=== PATIENT | female | born 1940 | race Caucasian/White ===

== ENCOUNTER 2017-02-21 14:32 | Emergency (ER) | payer MEDICARE ==
[2017-02-21] MEDS ORDERED: diltiaZEM INJ 5 MG/ML VIAL IVP STA ×2 (15:02→15:43)
[2017-02-21] MEDS ORDERED: ENOXAPARIN 60 MG/0.6 ML SYRINGE SUBQ STA (15:02)
--- NOTE | 2017-02-21 15:06 | ED Physician Documentation ---
History of Present Illness - Stated complaint Stated Complaint: CHEST TIGHTNESS,WEAK, SOA, HEADACHE - Chief complaint Chief Complaint: General - History obtained from History obtained from: Patient, Family - History of Present Illness Timing: Other (76-year-old woman with history of atrial flutter. She is noncompliant with some sort of cardiology medication for same. She said she stopped taking it a couple of weeks ago. 9 days ago she became persistently nauseous and has vomited a few times and feels weak and dizzy there is no associated chest pain. She is short of breath. No pedal edema. She denies abdominal pain or diarrhea.) Review of Systems Ten Systems: 10 systems reviewed and negative Constitutional: denies: Fever, Chills Nose: denies: Rhinorrhea / runny nose, Congestion Cardiac: denies: Chest pain / pressure, Palpitations, Pedal edema, Calf pain Respiratory: reports: Dyspnea. denies: Cough, Hemoptysis, Wheezing GI: reports: Nausea, Vomiting. 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, Other HEENT: Cataracts, Tonsil/Adenoidectomy - Present Medications Home Medications: Ambulatory Orders Medication Instructions Recorded Confirmed HYDROcod/ACETAM 5/325 [[place] 5/325] 1 each PO BID PRN 02/21/17 02/21/17 Metoclopramide [Reglan] 10 mg PO Q6H PRN #20 tablet 02/21/17 - Allergies Allergies/Adverse Reactions: Allergies Allergy/AdvReac Type Severity Reaction Status Date / Time cephalexin monohydrate * Allergy Hives Verified 02/21/17 14:43 [From Keflex] tobramycin Allergy Nausea Verified 02/21/17 14:43 venom-honey bee Allergy Unknown Verified 02/21/17 14:43 [bee venom (honey bee)] OXYCODONE Allergy Unknown Uncoded 02/21/17 14:43 - Social History Does the pt smoke?: No Smoking Status: Never smoker Does the pt drink ETOH?: Yes Does the pt have substance abuse?: No - Family History Family history: reports: Non contributory - Immunizations Immunizations are current?: Yes PD ED PE NORMAL - Vitals Vital signs reviewed: Yes - General General: Alert and oriented X 3, No acute distress, Other (Thin) - HEENT HEENT: PERRL, EOMI - Neck Neck: Supple, no meningeal sign, No bony TTP, No JVD - Cardiac Cardiac: Other (irregularly, irregular, no murmur.) - Respiratory Respiratory: Other (rales v mild at both bases) - Abdomen Abdomen: Soft, Non tender - Extremities Extremities: Normal ROM s pain, No edema, No calf tenderness / cord - Neuro Neuro: Alert and oriented X 3, Normal speech - Psych Psych: Normal mood, Normal affect Results - Vitals Vitals: Vital Signs - 24 hr 02/21/17 02/21/17 02/21/17 14:35 14:55 15:34 Temperature 37.2 C Heart Rate 115 H 114 H 103 H Respiratory 15 18 16 Rate Blood Pressure 159/109 H 168/93 H 126/75 O2 Saturation 99 99 97 02/21/17 02/21/17 16:38 17:13 Temperature Heart Rate 103 H 92 Respiratory 18 18 Rate Blood Pressure 148/84 H 146/98 H O2 Saturation 97 98 Oxygen O2 Source [] Nasal cannula O2 Source Room air - EKG (time done) 1445 Rate: Rate (enter#) (111) Rhythm: Atrial fibrillation [place]: LAD QRS: Normal Ischemia: ST elevation c/w ischemia Computer interpretation: Agree with computer 1718 Rate: Rate (enter#) (92) Rhythm: NSR [place]: Normal Intervals: Normal [place], Prolonged QT (borderline) QRS: Normal Computer interpretation: Agree with computer - Labs Labs: Laboratory Tests 02/21/17 02/21/17 02/21/17 14:44 14:44 14:44 WBC 8.8 RBC 4.30 Hgb 13.5 Hct 41.2 MCV 95.8 MCH 31.5 H MCHC 32.8 RDW 14.5 Plt Count 176 MPV 8.0 Neut # 6.6 Lymph # 1.4 L Rabun # 0.7 Eos # 0.0 Baso # 0.1 Absolute Nucleated RBC 0.01 Nucleated RBCs 0.1 PT 11.2 INR 1.0 Sodium 139 Potassium 3.1 L Chloride 96 L Carbon Dioxide 16 L Anion Gap 27.0 H BUN 7 Creatinine 0.5 Estimated GFR (MDRD) 121 Glucose 103 H Calcium 9.7 Total Bilirubin 2.4 H AST 113 H ALT 46 Alkaline Phosphatase 142 H Troponin I B-Natriuretic Peptide Total Protein 8.1 Albumin 4.4 Globulin 3.7 Albumin/Globulin Ratio 1.2 Lipase 125 H TSH 02/21/17 02/21/17 02/21/17 14:44 14:44 14:44 WBC RBC Hgb Hct MCV MCH MCHC RDW Plt Count MPV Neut # Lymph # [place] # Eos # Baso # Absolute Nucleated RBC Nucleated RBCs PT INR Sodium Potassium Chloride Carbon Dioxide Anion Gap BUN Creatinine Estimated GFR (MDRD) Glucose Calcium Total Bilirubin AST ALT Alkaline Phosphatase Troponin I < 0.04 B-Natriuretic Peptide 51 Total Protein Albumin Globulin Albumin/Globulin Ratio Lipase TSH 6.40 H - Rads (name of study) RUQ sono Radiology: Prelim report reviewed (Hepatic steatosis, gallbladder polyp not needing followup, borderline gallbladder wall thickness probably related to underlying liver disease.) PD MEDICAL DECISION MAKING - ED course ED course: 76-year-old woman with history of atrial flutter presents with nonspecific nausea and lightheadedness and dyspnea in the setting of now being in rapid atrial fibrillation and recently been noncompliant with whatever cardiac medicine she is supposed to take, they don't know the name of it. She was administered of diltiazem IV and Lovenox subcutaneous. She does have rapid atrial flutter on her EKG but no real ischemic changes, no overt evidence of fluid overload on exam or chest x-ray. Lab work notable for acidosis with hypokalemia, she was given IV fluids and potassium IV. Also note that her liver enzymes are elevated. After discussing this with the patient and family the came out and talked to me and told me that she is a heavy drinker, right upper quadrant ultrasound was ordered. At that juncture her heart rate was about 105 and a second dose of diltiazem was ordered as well. Really no further improvement with the diltiazem but with half a dose of IV metoprolol she converted to sinus rhythm. She felt much better at that juncture. She requests discharge. Advised decreasing alcohol and following up with her supervisor [employer]. She has some sort of heart medicine at home to prevent this, presume a beta nahed, they will restart that tonight. Consideration given to ongoing and home-going anticoagulation, but given that she has converted, and concerns about alcoholism, this is probably a discussion better had with her primary care physician and/or supervisor [employer]. Departure - Departure Disposition: 01 Home, Self Care Clinical Impression: Hypokalemia, Atrial fib/flutter, transient, Dehydration Condition: Good Record reviewed to determine appropriate education?: Yes Instructions: Atrial Fibrillation Dc, Hypokalemia Dc Prescriptions: Metoclopramide [Reglan] 10 mg PO Q6H PRN #20 tablet PRN Reason: Nausea / Vomiting Comments: Take your cardiac medicine as you are supposed you. Return if worse. Followup with your physician, next available appointment, also your supervisor [employer]. Discharge Date/Time: 02/21/17 17:43
[2017-02-21] MEDS ORDERED: ENOXAPARIN 60 MG/0.6 ML SYRINGE SUBQ ONE (15:07)
[2017-02-21] MEDS ORDERED: diltiaZEM INJ 5 MG/ML VIAL ONE (15:07)
[2017-02-21 15:12] LABS: BASOPHILS # (AUTO) 0.1 10^3/uL (0.0-0.1); BASOPHILS % (AUTO) 0.7 %; EOSINOPHILS % (AUTO) 0.4 %; HCT - HEMATOCRIT 41.2 % (37.0-47.0); HGB - HEMOGLOBIN 13.5 g/dL (12.0-16.0); LYMPHOCYTES # (AUTO) 1.4 10^3/uL (1.5-3.5); MEAN CORPUSCULAR HEMOGLOBIN 31.5 pg (27.0-31.0); MEAN CORPUSCULAR HGB CONC 32.8 g/dL (32.0-36.0); MEAN CORPUSCULAR VOLUME 95.8 fL (81.0-99.0); MONOCYTES # (AUTO) 0.7 10^3/uL (0.0-1.0); MONOCYTES % (AUTO) 7.6 %; NEUTROPHILS # (AUTO) 6.6 10^3/uL (1.5-6.6); NEUTROPHILS % (AUTO) 75.3 %; NUCLEATED RED BLOOD CELLS AUTO 0.1 /100WBC; RED CELL DISTRIBUTION WIDTH 14.5 % (12.0-15.0); UNCORRECTED WHITE BLOOD COUNT 8.8 x10^3/uL; WHITE BLOOD COUNT 8.8 x10^3/uL (4.8-10.8)
[2017-02-21 15:18] LABS: PT - PROTHROMBIN TIME 11.2 secs (9.9-12.6)
[2017-02-21] MEDS ORDERED: PROMETHAZINE INJ 6.25 MG in SODIUM CHLORIDE 0.9% 50 ML IV STA (15:22)
[2017-02-21] MEDS ORDERED: PROMETHAZINE 25 MG/1 ML VIAL ONE ×2 (15:22→15:29)
[2017-02-21 15:27] LABS: ALBUMIN/GLOBULIN RATIO 1.2 (1.0-2.2); BILIRUBIN,TOTAL 2.4 mg/dL (0.2-1.0); CALCIUM 9.7 mg/dL (8.5-10.3); CREATININE 0.5 mg/dL (0.4-1.0); POTASSIUM 3.1 mmol/L (3.5-5.0); TOTAL PROTEIN 8.1 g/dL (6.7-8.2)
--- NOTE | 2017-02-21 15:38 | XRAY Preliminary Report ---
Exam: XR Chest 1 View IMPRESSION: No acute disease. [facility] SITE ID: [id number]
--- NOTE | 2017-02-21 15:41 | XRAY Report ---
EXAM: CHEST RADIOGRAPHY EXAM DATE: 02/21/2017 03:19 PM. CLINICAL HISTORY: Afib with dyspnea,?chf. COMPARISON: None. TECHNIQUE: 1 view. FINDINGS: Lungs/Pleura: Clear. No effusion or pneumothorax. Skin fold artifacts. Added density over the left ba se is due to overlying soft tissue. Mediastinum: Within exam limitations, cardiomediastinal contour is normal. Upper lobe vessels not dis tended. Other: Osteopenia, degenerative changes. IMPRESSION: No acute disease. [facility] Referring Provider Line: [phone] SITE ID: [id number]
[2017-02-21] MEDS ORDERED: POTASSIUM CHLOR 10 MEQ/100 ML 100 ML IV ONE ×2 (15:42→15:44)
[2017-02-21] MEDS ORDERED: SODIUM CHLORIDE 0.9% 1,000 ML IV ONE (15:43)
[2017-02-21] MEDS ORDERED: METOPROLOL 5 MG/5 ML VIAL IVP STA (16:54)
[2017-02-21] MEDS ORDERED: METOPROLOL 5 MG/5 ML VIAL IVP ONE (17:02)
[2017-02-21 17:13] VITALS: BP 146/98
--- NOTE | 2017-02-21 17:17 | Ultrasound Preliminary Report ---
Exam: US Abdomen Limited IMPRESSION: 1. Steatotic liver. 2. 3 mm gallbladder polyp versus adherent stone. No imaging follow-up needed for gallbladder polyps l ess than 7 mm per ACR white paper. 3. Borderline gallbladder wall thickness, nonspecific, may relate to underlying liver disease. [facility] SITE ID: [id number]
--- NOTE | 2017-02-21 17:20 | Ultrasound Report ---
EXAM: ABDOMEN ULTRASOUND LIMITED, RUQ EXAM DATE: 02/21/2017 04:42 PM. CLINICAL HISTORY: Nausea. Elevated liver function tests. COMPARISON: None. TECHNIQUE: Real-time scanning was performed with static images obtained. FINDINGS: Liver: Dense, echogenic, mildly heterogeneous parenchyma, compatible with steatosis, with geographic areas of fatty sparing adjacent to the gallbladder. Main portal vein flow: Hepatopetal. Gallbladder: Immobile non-shadowing 3 mm echogenic focus in the neck, representing a polyp or adheren t stone. Borderline gallbladder wall thickness, 3 mm. No sonographic Liz's sign. Biliary System: CBD measures 5 mm. No intrahepatic or extrahepatic ductal dilatation. Right Kidney: 11.5 cm in length. Normal parenchymal echotexture. No visualized shadowing stones or hy dronephrosis. Pancreas: Mostly obscured by overlying bowel gas. Prominent pancreatic duct in the neck measuring 3 m m. IMPRESSION: 1. Steatotic liver. 2. 3 mm gallbladder polyp versus adherent stone. No imaging follow-up needed for gallbladder polyps l ess than 7 mm per ACR white paper. 3. Borderline gallbladder wall thickness, nonspecific, may relate to underlying liver disease. [facility] Referring Provider Line: [phone] SITE ID: [id number]
[2017-02-21] MEDS ORDERED: POTASSIUM CHLORIDE 20 MEQ TABLET PO STA (17:26)
[2017-02-21] MEDS ORDERED: POTASSIUM CHLORIDE 20 MEQ TABLET PO ONE (17:29)
== END 2017-02-21 17:43 | disposition home or self-care (01) ==
LOC: ED 14:32
DX: I48.91 Unspecified atrial fibrillation (principal); I48.92 Unspecified atrial flutter; T44.7X6A Underdosing of beta-adrenoreceptor antagonists, initial encounter; Z91.128 Patient's intentional underdosing of medication regimen for other reason; E87.2 Acidosis; E86.0 Dehydration; E87.6 Hypokalemia; K76.0 Fatty (change of) liver, not elsewhere classified; J45.909 Unspecified asthma, uncomplicated; I10 Essential (primary) hypertension; M06.9 Rheumatoid arthritis, unspecified
CPT/HCPCS: 36415; 71010; 76705; 80053; 83690; 83880; 84443; 84484; 85025; 85610; 93005; 93010; 96365; 96368; 96372; 96375; 96376; 99284; 99285; A9270; J1650

== ENCOUNTER 2018-07-24 07:54 | Inpatient (IN) | payer MEDICARE ==
[2018-07-24] MEDS ORDERED: METOPROLOL 5 MG/5 ML VIAL IVP STA ×2 (08:14→09:59)
[2018-07-24] MEDS ORDERED: SODIUM CHLORIDE 0.9% 1,000 ML IV ONE (08:14)
--- NOTE | 2018-07-24 08:19 | ED Physician Documentation ---
History of Present Illness - Stated complaint Stated Complaint: CP - Chief complaint Chief Complaint: Cardiac - Additonal information Additional information: hx from pt and 77 f PMD [facility] states pmhx breast cancer 10 yr ago s recurrence and a fib has hx afib - not compliant with BB and dx with PEs a few mothss ago and rx xarelto which she has been faithfully taking she knows she has a pleural effuson - this was noted when PEs were dx she states her PEs were attributed to being fairly inactive to ED today CC chest pain had brief poking CP yesterday for maybe 15 min then today 5 AM - 7 Am severe epigastric pain with SOA and NV also has a distended abd X 1 m and bloody stools is chronically incont of urine and stool per and has a rash to her chest for about a month no fever Review of Systems Constitutional: denies: Fever Cardiac: reports: Chest pain / pressure Respiratory: reports: Dyspnea GI: reports: Abdominal Swelling, Vomiting, Bloody / black stool : reports: Incontinent Musculoskeletal: denies: Neck pain, Back pain Endocrine: denies: Easy bruising / bleeding Immunocompromised: denies: Immunocompromised PD PAST MEDICAL HISTORY - Past Medical History Cardiovascular: Hypertension, High cholesterol, Atrial fibrillation Respiratory: Asthma, Pneumonia Endocrine/Autoimmune: None GI: GERD : Incontinence HEENT: Other Psych: Claustrophobia Musculoskeletal: Osteoarthritis, Rheumatoid arthritis, Osteoporosis, Fatigue, Chronic back pain Derm: None - Past Surgical History Past Surgical History: Yes Ortho: Knee replacement, 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, Mastectomy, Other HEENT: Cataracts, Tonsil/Adenoidectomy - Present Medications Home Medications: Ambulatory Orders Medication Instructions Recorded Confirmed Metoprolol Succinate 50 mg PO DAILY 07/24/18 07/24/18 Rivaroxaban [Xarelto] 20 mg PO DAILY 07/24/18 07/24/18 - Allergies Allergies/Adverse Reactions: Allergies Allergy/AdvReac Type Severity Reaction Status Date / Time cephalexin monohydrate * Allergy Hives Verified 07/24/18 08:07 [From Keflex] tobramycin Allergy Nausea Verified 07/24/18 08:07 venom-honey bee Allergy Unknown Verified 07/24/18 08:07 [bee venom (honey bee)] OXYCODONE Allergy Unknown Uncoded 02/21/17 14:43 - Social History Does the pt smoke?: No Smoking Status: Never smoker Does the pt drink ETOH?: Yes Does the pt have substance abuse?: No - Immunizations Immunizations are current?: Yes PD ED PE NORMAL - Vitals Vital signs reviewed: Yes - General General: No: Alert and oriented X 3 (confused but this seems to not be new - anwers most questions) - Cardiac Cardiac: RRR - Respiratory Respiratory: No respiratory distress, Clear bilaterally - Abdomen Abdomen: Other (markedly distended and tympanic, NT) - Rectal Rectal: Pt declined - Derm Derm: Other (macular red rash to upper chest / low neck) - Extremities Extremities: Other (estephania symm edema) - Neuro Neuro: No: Alert and oriented X 3 Results - Vitals Vitals: Vital Signs - 24 hr 07/24/18 08:02 Temperature 36.2 C L Heart Rate 104 H Respiratory 20 Rate Blood Pressure 147/102 H O2 Saturation 99 Oxygen O2 Source [Without Activity] Nasal cannula O2 Source Room air - EKG (time done) 0803 Rate: Rate (enter#) (114) Rhythm: Atrial fibrillation Ischemia: Other (severe baseline artifact from tremor but looks like a fib with poor R wave progressions, diffusely flat T waves and small inf Q waves) Other comments: Other comments (EKG machine read long QT but I cannot even identify T waves through the motion artifact) - Rads (name of study) CT AP Radiology: See rad report (markedly heterogeneous density liver on non contrast - could be due to multiple mets or perhaps hepatitis cirrhosis or heterogeneous liver infiltration, rec liver enhanced MRI. mod ascites, small L pleural effusion, diffuse edema) CXR Radiology: See rad report (small L pleural effusion and atelectasis better seen on abd CT) PD MEDICAL DECISION MAKING - ED course ED course: chest pain from 4-7 AM today EKG non specific first trop neg will merit serial CE and echo but also with distended abd and CT concerning for mets to liver and ascites which is newly dx but probably (per hx from ) been developing over a month and tachy with elev lactate but hx a fib not complaint with BB and lactate could be elevated 2/2 liver dz if ID an infectious source will start appropriate ab but not convinced this is sepsis at this time needs tap (rec under IR sono guidance given small amt of fluids and on xarelto) ruq sono, MRI liver per rad rec etc urine did come back later and is + so started antibiotics zosyn after d/w inpt doc also GIB by pt hx but she refuses rectal exam will req hospitalist to admit [phone] hospitalist in meeting awaiting call back Departure - Departure Disposition: 66 [facility] DC/Xfer Clinical Impression: Pleural effusion, Abnormal abdominal CT scan, Abnormal liver function, Elevated lactic acid level Chest pain Qualifiers: Chest pain type: unspecified Qualified Code(s): R07.9 - Chest pain, unspecified Ascites Qualifiers: Ascites type: other type Qualified Code(s): R18.8 - Other ascites UTI (urinary tract infection) Qualifiers: Urinary tract infection type: site unspecified Hematuria presence: without hematuria Qualified Code(s): N39.0 - Urinary tract infection, site not specified Atrial fibrillation Qualifiers: Atrial fibrillation type: unspecified Qualified Code(s): I48.91 - Unspecified atrial fibrillation Discharge Date/Time: 07/24/18 13:12
[2018-07-24 08:24] LABS: BASOPHILS % (AUTO) 0.4 %; EOSINOPHILS % (AUTO) 0.2 %; MEAN CORPUSCULAR HEMOGLOBIN 29.6 pg (27.0-31.0); MEAN CORPUSCULAR HGB CONC 32.7 g/dL (32.0-36.0); MEAN CORPUSCULAR VOLUME 90.4 fL (81.0-99.0); MEAN PLATELET VOLUME 8.4 fL (7.9-10.8); MONOCYTES # (AUTO) 0.8 10^3/uL (0.0-1.0); MONOCYTES % (AUTO) 9.3 %; NEUTROPHILS # (AUTO) 6.9 10^3/uL (1.5-6.6); NEUTROPHILS % (AUTO) 79.1 %; PLT - PLATELET COUNT 228 10^3/uL (130-450); RED CELL DISTRIBUTION WIDTH 16.2 % (12.0-15.0); WHITE BLOOD COUNT 8.7 x10^3/uL (4.8-10.8)
[2018-07-24 08:38] LABS: ALBUMIN 2.9 g/dL (3.2-5.5); ALBUMIN/GLOBULIN RATIO 0.8 (1.0-2.2); BILIRUBIN,TOTAL 1.8 mg/dL (0.2-1.0); CREATININE 0.4 mg/dL (0.4-1.0); TOTAL PROTEIN 6.4 g/dL (6.7-8.2)
--- NOTE | 2018-07-24 09:07 | CT Report ---
Reason: abd pain distension Procedure Date: 07/24/2018 Accession Number: [id number] / [id number] Procedure: CT - Abdomen/Pelvis W/O CPT Code: FULL RESULT: EXAM: CT ABDOMEN AND PELVIS WITHOUT CONTRAST EXAM DATE: 07/24/2018 08:39 AM. CLINICAL HISTORY: Abdominal pain, distension. COMPARISONS: VASCULAR ABDOMEN LIMITED 02/21/2017 3:58 PM. TECHNIQUE: Routine helical CT imaging was performed through the abdomen and pelvis. IV contrast: None. Enteric contrast: No. Reconstructions: Coronal and sagittal. In accordance with CT protocol optimization, one or more of the following dose reduction techniques were utilized for this exam: automated exposure control, adjustment of mA and/or KV based on patient size, or use of iterative reconstructive technique. FINDINGS: Lung Bases: There is a small left pleural effusion and left basilar compressive atelectasis. There is mild scarring or atelectasis at the base of the right middle lobe. Liver: Heterogeneous density of the liver on this noncontrast exam appears new or more conspicuous compared to the visualized portion of the liver dome seen on prior CT pulmonary angiogram on 05/06/2018. Gallbladder/Bile Ducts: Unremarkable. Spleen: Unremarkable noncontrast appearance. Pancreas: Unremarkable. Adrenal Glands: Unremarkable. Kidneys: No stones, hydronephrosis, or contour deforming mass. There are several phleboliths along the course of the left ovarian vein adjacent to the nondilated left ureter. Peritoneal Cavity/Bowel: There is a moderate amount of free fluid in the abdomen. No free air. No gross adenopathy. No evidence of bowel obstruction or abnormal colonic stool burden. Pelvic Organs: The bladder is unremarkable. There are multiple calcified uterine fibroids. Otherwise unremarkable appearance of the visualized pelvic organs. Vasculature: There is extensive atherosclerotic calcification of the abdominal aorta. No aneurysm. Bones: Diffusely demineralized. There is moderate compression deformity of the L1 vertebral body with evidence of prior vertebroplasty. No acute osseous abnormality. There are mild to moderate degenerative disk changes of the lower thoracic and lumbar spine. Other: There is diffuse body wall edema. IMPRESSION: 1. Markedly heterogeneous density of the liver on this noncontrast exam. This could be due to multiple hepatic metastases or other masses, hepatitis, cirrhosis, or heterogeneous fatty infiltration. Further evaluation with contrast-enhanced liver protocol MRI (preferred) or CT is recommended. 2. Moderate ascites. 3. Small left pleural effusion. 4. Diffuse body wall edema. [facility]
--- NOTE | 2018-07-24 09:14 | XRAY Report ---
Reason: cp Procedure Date: 07/24/2018 Accession Number: [id number] / [id number] Procedure: XR - Chest 2 View X-Ray CPT Code: 86634 FULL RESULT: EXAM: CHEST RADIOGRAPHY EXAM DATE: 07/24/2018 08:45 AM. CLINICAL HISTORY: Chest pain. COMPARISON: CHEST 1 VIEW 02/21/2017 3:13 PM VASCULAR ABDOMEN/PELVIS W/O 07/24/2018 8:36 AM. TECHNIQUE: 2 views. FINDINGS: Lungs/Pleura: There is a small left pleural effusion and left basilar atelectasis, as seen on CT of the abdomen and pelvis. No right-sided effusion. The right lung is clear. No pneumothorax. Mediastinum: Heart and mediastinal contours are unremarkable. There is mild atherosclerotic calcification of the aortic arch. Other: No acute osseous abnormality. IMPRESSION: Small left pleural effusion and left basilar atelectasis, as seen on CT of the abdomen and pelvis. [facility]
[2018-07-24 10:25] LABS: BILIRUBIN,URINE NEGATIVE (NEGATIVE); GLUCOSE, URINE (UA) NEGATIVE (NEGATIVE); KETONES,URINE (UA) NEGATIVE (NEGATIVE); LEUKOCYTE ESTERASE, URINE LARGE (NEGATIVE); NITRITE,URINE POSITIVE (NEGATIVE); OCCULT BLOOD,URINE TRACE-LYSE (NEGATIVE); PROTEIN,URINE NEGATIVE (NEGATIVE); UROBILINOGEN,URINE 0.2 (NORMAL) E.U./dL (NORMAL)
[2018-07-24 10:27] LABS: CLARITY,URINE SL. CLOUDY (CLEAR)
[2018-07-24 10:32] LABS: RBC,URINE 0-5 /HPF (0-5)
[2018-07-24 10:33] LABS: BACTERIA,URINE Moderate /HPF (None Seen); MUCUS,URINE Moderate Strands; SQUAMOUS EPITHELIAL CELL,UR FEW Squamous (<= Few)
[2018-07-24] MEDS ORDERED: PROCHLORPERAZINE 10 MG/2 ML VIAL IVP PRN (11:52)
[2018-07-24] MEDS ORDERED: ACETAMINOPHEN 325 MG TABLET PO PRN (11:52)
[2018-07-24] MEDS ORDERED: DEXTROSE 5%-0.9% NACL 1,000 ML IV SCH ×2 (12:00→18:11)
[2018-07-24] MEDS ORDERED: PIPERACILLIN/TAZOBACTAM 3.375 GM in SODIUM CHLORIDE 0.9% MINIBAG 100 ML IV STA (12:36)
[2018-07-24] MEDS ORDERED: RIVAROXABAN 10 MG TABLET PO STA (12:58)
[2018-07-24] MEDS ORDERED: BEER 480 ML CAN PO ONE (15:31)
[2018-07-24] MEDS: BEER 355 ML BOTTLE PO SCH ×2 (15:45→21:31)
[2018-07-24] MEDS: MULTIVITAMIN 10 ML, FOLIC ACID INJ 1 MG, THIAMINE INJ 100 MG, MAGNESIUM SULFATE 2 GM in... IV SCH ×5 (16:40)
[2018-07-24] MEDS: SODIUM CHLORIDE FLUSH 0.9% 10 ML SYRINGE IVP SCH (16:41)
[2018-07-24] MEDS ORDERED: METOPROLOL 5 MG/5 ML VIAL IVP ONE (18:10)
--- NOTE | 2018-07-24 19:07 | HISTORY & PHYSICAL EXAMINATION ---
DATE OF SERVICE: 07/24/2018 Physician: Mirtha Pryor MD HISTORY OF PRESENT ILLNESS: This is a 77-year-old white female with a history of atrial fibrillation, on beta nahed; pulmonary embolism diagnosed possibly 1-2 months ago, for which she is supposed to be on Xarelto; history of remote breast cancer, who had evaluation by Oncology 1 year ago, and told that she did not have recurrence or spread of cancer; history of alcohol abuse with admission several years ago, documenting that she would, "drink 6 martinis a day." The patient presented with complaints of brief chest pain, but also several hours of abdominal discomfort that was vague and hard for her to describe. The gave most of the history in the emergency room. To me, she was somewhat evasive regarding details. He said she has had 1 month of abdominal swelling, leg edema for several weeks, intermittent hemorrhoidal bleeding, occasional incontinence of urine and stool , possible noncompliance with medications. The patient's story is that she awoke and had poor vision and was taken outside for "fresh air," but then her "poor vision continued and the brought her in." The emergency room note states that she had chest pain briefly yesterday and then several hours of abdominal pain today, but she currently denies any abdominal pain.She was found to be in atrial fibrillation with a rapid rate of 130 in the ER, and elevated lactic acid level and is being admitted for SIRS and a UTI source. PAST MEDICAL HISTORY 1. Atrial fibrillation. 2. Pulmonary embolism. 3. Alcohol abuse. REVIEW OF SYSTEMS: There has been no recent fever, falls, cough. The tells me that she eats very little: Rice, Ensure, and has martinis "all day long." There has been no recent significant melena. She does not feel palpitations. There has been no history of cardiac disease, no chest pain or recent stress test. There have been no medication changes. The patient is too weak to go up the stairs to the bedroom for the past 3 months. She only gets out of bed and into a wheelchair. The rest of the comprehensive ROS is negative. MEDICATIONS 1. Metoprolol. 2. Xarelto. ALLERGIES 1. TOBRAMYCIN. 2. KEFLEX. 3. OXYCODONE. 4. BEE VENOM. SOCIAL HISTORY: The patient is a nonsmoker who never smoked, drinks martinis all day for many years, uses no illicit drugs. The patient has had 4 children of her own. She is to her second , has 2 stepchildren. She currently lives at home alone with her . FAMILY HISTORY: One sister of pancreatitis. Her mother of cardiovascular disease. Father of unknown causes. PHYSICAL EXAMINATION GENERAL: Cachectic white female. She is somewhat evasive in her answers. She is in no acute distress. VITAL SIGNS: Blood pressure 140/83, heart rate of 126 in atrial fibrillation, now down to 102 in atrial fibrillation. Afebrile, room air saturation 99%. HEENT: Reveals poor dentition, dry oral mucosa and tongue, temporal wasting, pallor, no icterus of the sclerae. NECK: No JVD in a vertical position. CHEST: Clear. HEART: Sounds are distant. No murmur heard. ABDOMEN: Distended mildly with a possible fluid wave, possible hepatomegaly, no tenderness, hypertympanic. EXTREMITIES: Legs have 2+ edema, venous stasis changes. No clubbing or cyanosis. NEUROLOGIC: She has an intentional tremor of both hands. She is somewhat evasive in her answers, and shows some evidence of forgetfulness. LABORATORY/DATA Lactic acid level 7.3, then down to 5.0 three hours later. Sodium 140, potassium 3.1, BUN 11, creatinine 0.4, AST 114, ALT 29, alkaline phosphatase 375, bilirubin 1.8, albumin 2.9, lipase 78. White blood count 8.7 with a left shift, hemoglobin 10 with an MCV of 90, platelet count normal at 228. No INR was done. Urinalysis showed pH of 6, specific gravity 1.02, positive nitrites, large leukocyte esterase, many white blood cells, and moderate bacteria. Toxicology showed an alcohol level, at 0805 am, of 37.3. CHEST X-RAY: Mild pleural effusions. EKG: Atrial fibrillation with nonspecific changes and tachycardic rate. Abdomen and pelvis CT were also done that showed mild-moderate ascites, heterogenous density of the liver consistent with possible cirrhosis or masses. A small left pleural effusion was also seen. IMPRESSION/DIAGNOSES 1. Systemic inflammatory response syndrome (SIRS). 2. Urinary tract infection, which is probably the reason for the elevated lactic acid level and SIRS. 3. Ascites. 4. Elevated liver function tests, specifically elevated AST to ALT ratio, very suggestive of alcohol abuse and likely cirrhosis. 5. Atrial fibrillation with rapid rate. 6. History of pulmonary embolism. 7. Malnutrition. 8. History of breast cancer remotely. PLAN 1. Admit the patient. 2. Obtain blood and urine cultures. 3. Start the patient on empiric treatment for systemic inflammatory response syndrome (SIRS) and infection. Because SHE HAS A TOBRAMYCIN AND KEFLEX ALLERGY, we will not use gentamicin and Rocephin but instead Pip-Tazo (Zosyn) IV. 4. Begin gentle IV hydration; however, watching for worsening of abdominal distention and ascites. 5. Begin a CIWA protocol. Order Ativan p.r.n. withdrawal, and she will be "dosed" with beer for her alcohol habit. 6. Restart her beta nahed for rate control. Use iv Lopressor if needed. 7. Restart her Xarelto for the pulmonary embolism treatment which will also be the anticoagulation with the atrial fibrillation. 8. Obtain an Echo to evaluate reasons for edema, because of the atrial fibrillation; one has never been done here. 9. Obtain a Nutrition consult regarding her cachexia. 10. Follow her electrolytes, liver tests, CBC daily. 11. Start banana bag treatment daily, transitioning to oral Thiamine. CODE STATUS: FULL CODE. DEEP VENOUS THROMBOSIS PROPHYLAXIS: Sequential compression devices and continuation of pharmacotherapy with Xarelto anticoagulant. ATTESTATION: The patient is expected to be discharged or transferred to another facility within 96 hours: Yes. cc: Shirley Saleem MD TD: 07/24/2018 16:38 MTDD
[2018-07-24] MEDS: PIPERACILLIN/TAZOBACTAM 3.375 GM in SODIUM CHLORIDE 0.9% MINIBAG 100 ML IV SCH (21:24)
[2018-07-24] MEDS: FAMOTIDINE 20 MG TABLET PO SCH (21:24)
[2018-07-24] MEDS: HYDROcod/ACETAM 5/325 MG TABLET PO PRN (21:25)
[2018-07-24] MEDS: TRAVOPROST 0.004% OPHTH DROPS 2.5 ML EACHEYE SCH (22:10)
[2018-07-25] MEDS: LORazepam 2 MG/ML VIAL IVP PRN ×4 (03:54→20:19)
[2018-07-25] MEDS: SODIUM CHLORIDE FLUSH 0.9% 10 ML SYRINGE IVP SCH ×3 (03:54→16:18)
[2018-07-25] MEDS: PIPERACILLIN/TAZOBACTAM 3.375 GM in SODIUM CHLORIDE 0.9% MINIBAG 100 ML IV SCH ×4 (04:25→22:11)
[2018-07-25] MEDS: NS W/20 MEQ KCL 1,000 ML IV SCH ×3 (05:19→23:42)
[2018-07-25] MEDS ORDERED: BEER 480 ML CAN PO ONE (07:51)
[2018-07-25] MEDS: BEER 355 ML BOTTLE PO SCH (07:54)
[2018-07-25] MEDS: POLYETHYLENE GLYCOL 3350 17 GM PACKET PO SCH (08:34)
[2018-07-25] MEDS: FAMOTIDINE 20 MG TABLET PO SCH ×2 (08:34→20:03)
[2018-07-25] MEDS ORDERED: RIVAROXABAN 10 MG TABLET PO SCH (09:00)
[2018-07-25] MEDS ORDERED: METOPROLOL SUCCINATE 50 MG TABLET PO SCH (09:00)
[2018-07-25] MEDS: METOPROLOL SUCCINATE 50 MG TABLET PO SCH (13:55)
[2018-07-25] MEDS ORDERED: BEER 480 ML CAN PO SCH (14:00)
--- NOTE | 2018-07-25 15:29 | PROVIDER PROGRESS NOTE ---
Assessment/Plan - Problem List (1) SIRS (systemic inflammatory response syndrome) Assessment/Plan: Lactic acid level has normalized with antibiotic treatment of the UTI and with volume replacement iv. Continue treating UTI and dehydration. (2) UTI (urinary tract infection) Qualifiers: Urinary tract infection type: site unspecified Hematuria presence: without hematuria Qualified Code(s): N39.0 - Urinary tract infection, site not specified Assessment/Plan: Continue empiric iv Zosyn, since she has Aminoglycoside and Cephalosporin allergies. Await cultures of urine and blood. (3) Acute delirium Assessment/Plan: Possibly more confused today then last evening at admission from alcohol withdrawal or from Ativan plus alcohol intake here. The told me, in confidence, so that his didn't know he told me, that she drinks martinis all day, from morning til night. 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 Continue CIWA scale and prn Ativan. Will decrease beer from tid to bid. (4) Ascites Qualifiers: Ascites type: due to alcoholic cirrhosis Qualified Code(s): K70.31 - Alcoholic cirrhosis of liver with ascites Assessment/Plan: Will monitor LFTs to determine if she has alcoholic hepatitis or cirrhosis with ascites. iv hydration is slow, to avoid ascites accumulation. Her abdomen is not tense or tender, to consider SBP, or to consider paracentesis. Monitor daily weights. (5) EtOH dependence Assessment/Plan: Heavy alcohol use was described by the (he told the RN that the "has a drink nearly every hour at home"). Two years ago, the inpatient records already stated she had 6 martinis per day intake. She was tremulous last evening, as she was being admitted. A CIWA protocol has been started. Replace low K and Mg. Daily banana bag ordered. Monitor BMP. (6) Atrial fibrillation Qualifiers: Atrial fibrillation type: chronic Qualified Code(s): I48.2 - Chronic atrial fibrillation Assessment/Plan: HR is now controlled on her home dose of B-nahed. She may have been in RVR from dehydration, SIRS or from Metoprolol non-com pliance. An Echo was ordered, and is still pending since she refused it today. (7) Hx pulmonary embolism Assessment/Plan: Xarelto dose was restarted, after she requested it be not given yesterday. (8) Anemia Assessment/Plan: Partly from rehydration, but will check B12, Folate, Iron panel, guaic stool. - Current Meds Current Meds: Current Medications Generic Name Dose Route Start Last Admin Trade Name Freq PRN Reason Stop Dose Admin Hydrocodone Bitart/Acetaminophen 1 tab 07/24/18 22:00 07/24/18 21:25 Lynd 5/325 PO 1 tab Q12H PRN Administration PAIN Beer 480 ml 07/25/18 14:00 07/25/18 14:03 Beer PO 480 ml TID SHY Administration Famotidine 20 mg 07/24/18 21:00 07/25/18 08:34 Pepcid PO 20 mg BID SHY Administration Piperacillin Sod/Tazobactam 100 mls @ 200 mls/hr 07/24/18 21:00 07/25/18 09:15 Sod 3.375 gm/ Sodium Chloride IV Infused Q6H SHY Infusion Multivitamins 10 ml/ Folic 1,015.2 mls @ 100 mls/hr 07/24/18 16:00 07/25/18 05:19 Acid 1 mg/ Thiamine HCl 100 mg IV Infused / Magnesium Sulfate 2 gm/ DAILY@1600 SHY Infusion Sodium Chloride Potassium Chloride/Sodium Chloride 1,000 mls @ 125 mls/hr 07/25/18 04:00 13:56 Normal Saline 0.9% W/20 Meq Kcl IV 125 mls/hr .Q8H SHY Administration Lorazepam 0.25 mg 07/24/18 15:10 07/25/18 12:49 Ativan Inj (Vial) IVP 0.25 mg Q2H PRN Administration Anxiety Metoprolol Succinate 50 mg 07/25/18 12:00 07/25/18 13:55 Toprol Xl PO 50 mg 1200 SHY Administration Polyethylene Glycol 17 gm 07/25/18 09:00 07/25/18 08:34 Miralax PO 17 gm DAILY SHY Administration Sodium Chloride 10 ml 07/24/18 17:00 07/25/18 08:38 Normal Saline Flush 0.9% IVP Not Given 0100,0900,1700 SHY Travoprost 1 drops 07/24/18 21:00 07/24/18 22:10 Travatan Z EACHEYE 1 drops QPM SHY Administration - Lab Result Fish Bone Diagrams: 07/24/18 08:05 07/24/18 08:05 - Additional Planning My Orders: My Active Orders 07/24/18 15:02 Echo Transthoracic Complete [ECHO] Routine 07/24/18 15:09 CIWA-Ar Score Assessment [RC] PRN 07/24/18 15:10 LORazepam INJ [Ativan Inj (Vial)] 0.25 mg IVP Q2H PRN 07/24/18 16:00 Multivitamin [Infuvite] 10 ml Folic Acid Inj 1 mg Thiamine Inj [Vitamin B-1 Inj] 100 mg Magnesium Sulfate 2 gm Sodium Chloride 0.9% [Normal Saline 0.9%] 1,000 ml IV DAILY@1600 07/24/18 17:00 Sodium Chloride Flush 0.9% [Normal Saline Flush 0.9%] 10 ml IVP 0100,0900,1700 07/24/18 21:00 Famotidine [Pepcid] 20 mg PO BID Piperacillin/Tazobactam [Zosyn] 3.375 gm Sodium Chloride 0.9% Minibag [Normal Saline 0.9% Minibag] 100 ml IV Q6H 07/24/18 22:00 HYDROcod/ACETAM 5/325 [Lynd 5/325] 1 tab PO Q12H PRN 07/25/18 Evaluate and Treat OT [OT] Routine Evaluate and Treat PT [PT] Routine 07/25/18 09:00 Polyethylene Glycol 3350 [Miralax] 17 gm PO DAILY 07/25/18 10:21 Rivaroxaban [Xarelto] 20 mg PO DAILYWM 07/25/18 12:00 Metoprolol Succinate [Toprol Xl] 50 mg PO 1200 07/25/18 14:00 Beer 480 ml PO TID Subjective - Subjective Patient Reports: Other (Pt answers my questions by asking about me, and then states that she thinks I am interested in "getting her money". She would not tell me if she is in pain, but appears comfortable.) Nursing Reports: Other (She refused OT, PT, swallowing eval and an Echo test.) Objective Vital Signs: Vital Signs - 24 hr 07/24/18 07/24/18 07/24/18 15:52 18:49 18:53 Temperature 37.0 C Heart Rate [ 126 H 112 H Monitoring electrodes] Respiratory 16 Rate Blood Pressure 122/76 Blood Pressure [Right Brachial artery] Blood Pressure 126/87 H 122/76 [Right Radial artery] O2 Saturation 98 07/24/18 07/24/18 07/24/18 18:57 19:08 19:37 Temperature 36.7 C Heart Rate [ 99 120 H 102 H Monitoring electrodes] Respiratory 16 Rate Blood Pressure Blood Pressure [Right Brachial artery] Blood Pressure 130/84 H 108/77 [Right Radial artery] O2 Saturation 97 07/25/18 07/25/18 07/25/18 00:05 04:00 07:59 Temperature 36.6 C 36.5 C 36.6 C Heart Rate [ 108 H 99 51 L Monitoring electrodes] Respiratory 17 16 18 Rate Blood Pressure Blood Pressure 113/68 109/77 127/88 H [Right Brachial artery] Blood Pressure [Right Radial artery] O2 Saturation 96 96 98 07/25/18 13:49 Temperature 36.6 C Heart Rate [ 100 Monitoring electrodes] Respiratory 19 Rate Blood Pressure Blood Pressure 111/86 H [Right Brachial artery] Blood Pressure [Right Radial artery] O2 Saturation 100 Oxygen O2 Source [Without Activity] Nasal cannula O2 Source Room air I&O (Last 24 Hrs): Intake and Output Totals x24h 07/23/18 07/24/18 07/25/18 23:59 23:59 23:59 Intake Total 4513.792 2870.2 Output Total 450 250 Balance 9723.460 2180.2 - Results Results: Laboratory Results WBC 8.7 x10^3/uL (4.8-10.8) 07/24/18 08:05 RBC 3.40 10^6/uL (4.20-5.40) L 07/24/18 08:05 Hgb 10.0 g/dL (12.0-16.0) L 07/24/18 08:05 Hct 30.7 % (37.0-47.0) L 07/24/18 08:05 MCV 90.4 fL (81.0-99.0) 07/24/18 08:05 MCH 29.6 pg (27.0-31.0) 07/24/18 08:05 MCHC 32.7 g/dL (32.0-36.0) 07/24/18 08:05 RDW 16.2 % (12.0-15.0) H 07/24/18 08:05 Plt Count 228 10^3/uL (130-450) 07/24/18 08:05 MPV 8.4 fL (7.9-10.8) 07/24/18 08:05 Neut # (Auto) 6.9 10^3/uL (1.5-6.6) H 07/24/18 08:05 Lymph # (Auto) 1.0 10^3/uL (1.5-3.5) L 07/24/18 08:05 [place] # (Auto) 0.8 10^3/uL (0.0-1.0) 07/24/18 08:05 Eos # (Auto) 0.0 10^3/uL (0.0-0.7) 07/24/18 08:05 Baso # (Auto) 0.0 10^3/uL (0.0-0.1) 07/24/18 08:05 Absolute Nucleated RBC 0.00 x10^3/uL 07/24/18 08:05 Nucleated RBC % 0.0 /100WBC 07/24/18 08:05 Sodium 140 mmol/L (135-145) 07/24/18 08:05 Potassium 3.1 mmol/L (3.5-5.0) L 07/24/18 08:05 Chloride 99 mmol/L (101-111) L 07/24/18 08:05 Carbon Dioxide 23 mmol/L (21-32) 07/24/18 08:05 Anion Gap 18.0 (6-13) H 07/24/18 08:05 BUN 11 mg/dL (6-20) 07/24/18 08:05 Creatinine 0.4 mg/dL (0.4-1.0) 07/24/18 08:05 Estimated GFR (MDRD) 156 (>89) 07/24/18 08:05 Glucose 134 mg/dL (70-100) H 07/24/18 08:05 Lactic Acid 2.0 mmol/L (0.5-2.2) 07/25/18 01:10 Calcium 8.0 mg/dL (8.5-10.3) L 07/24/18 08:05 Total Bilirubin 1.8 mg/dL (0.2-1.0) H 07/24/18 08:05 AST 114 IU/L (10-42) H 07/24/18 08:05 ALT 29 IU/L (10-60) 07/24/18 08:05 Alkaline Phosphatase 375 IU/L (42-121) H 07/24/18 08:05 Troponin I < 0.04 ng/mL (<0.49) 07/24/18 08:05 Total Protein 6.4 g/dL (6.7-8.2) L 07/24/18 08:05 Albumin 2.9 g/dL (3.2-5.5) L 07/24/18 08:05 Globulin 3.5 g/dL (2.1-4.2) 07/24/18 08:05 Albumin/Globulin Ratio 0.8 (1.0-2.2) L 07/24/18 08:05 Lipase 78 U/L (22-51) H 07/24/18 08:05 Urine Color YELLOW 07/24/18 10:15 Urine Clarity SL. CLOUDY (CLEAR) 07/24/18 10:15 Urine pH 6.0 PH (5.0-7.5) 07/24/18 10:15 Ur Specific [place] 1.020 (1.002-1.030) 07/24/18 10:15 Urine Protein NEGATIVE mg/dL (NEGATIVE) 07/24/18 10:15 Urine Glucose (UA) NEGATIVE mg/dL (NEGATIVE) 07/24/18 10:15 Urine Ketones NEGATIVE mg/dL (NEGATIVE) 07/24/18 10:15 Urine Occult Blood TRACE-LYSE (NEGATIVE) 07/24/18 10:15 Urine Nitrite POSITIVE (NEGATIVE) H 07/24/18 10:15 Urine Bilirubin NEGATIVE (NEGATIVE) 07/24/18 10:15 Urine Urobilinogen 0.2 (NORMAL) E.U./dL (NORMAL) 07/24/18 10:15 Ur Leukocyte Esterase LARGE (NEGATIVE) H 07/24/18 10:15 Urine RBC 0-5 /HPF (0-5) 07/24/18 10:15 Urine WBC >25 /HPF (0-5) H 07/24/18 10:15 Ur Squamous Epith Cells FEW Squamous (<= Few) 07/24/18 10:15 Urine Bacteria Moderate /HPF (None Seen) H 07/24/18 10:15 Urine Mucus Moderate Strands 07/24/18 10:15 Ur Microscopic Review INDICATED 07/24/18 10:15 Urine Culture Comments INDICATED 07/24/18 10:15 Ethyl Alcohol 37.3 mg/dL 07/24/18 08:05 - Procedures Procedures: Procedures INSERTION OF INFUSION DEV INTO SPINAL CANAL, PERC APPROACH (12/11/15) INTRODUCE REGIONAL ANESTH IN EPIDURAL SPACE, PERC (12/11/15) REPOSITION RIGHT LOWER FEMUR WITH INT FIX, OPEN APPROACH (12/11/15)
[2018-07-25] MEDS: MULTIVITAMIN 10 ML, FOLIC ACID INJ 1 MG, THIAMINE INJ 100 MG, MAGNESIUM SULFATE 2 GM in... IV SCH ×5 (16:20)
[2018-07-25 16:55] LABS: BASOPHILS % (AUTO) 0.5 %; EOSINOPHILS % (AUTO) 0.5 %; HGB - HEMOGLOBIN 8.6 g/dL (12.0-16.0); LYMPHOCYTES % (AUTO) 15.4 %; MEAN CORPUSCULAR HEMOGLOBIN 28.9 pg (27.0-31.0); MEAN CORPUSCULAR HGB CONC 31.8 g/dL (32.0-36.0); MEAN CORPUSCULAR VOLUME 90.8 fL (81.0-99.0); MEAN PLATELET VOLUME 8.2 fL (7.9-10.8); MONOCYTES # (AUTO) 0.5 10^3/uL (0.0-1.0); MONOCYTES % (AUTO) 8.1 %; NEUTROPHILS # (AUTO) 5.1 10^3/uL (1.5-6.6); NEUTROPHILS % (AUTO) 75.5 %; PLT - PLATELET COUNT 153 10^3/uL (130-450); RED BLOOD COUNT 2.99 10^6/uL (4.20-5.40); WHITE BLOOD COUNT 6.7 x10^3/uL (4.8-10.8)
[2018-07-25 17:05] LABS: ALBUMIN 2.4 g/dL (3.2-5.5); ALBUMIN/GLOBULIN RATIO 0.8 (1.0-2.2); CALCIUM 7.2 mg/dL (8.5-10.3); CREATININE 0.4 mg/dL (0.4-1.0); MAGNESIUM 1.5 mg/dL (1.7-2.8); TOTAL PROTEIN 5.4 g/dL (6.7-8.2)
[2018-07-25] MEDS: BEER 480 ML CAN PO SCH (17:05)
[2018-07-25] MEDS: HYDROcod/ACETAM 5/325 MG TABLET PO PRN (20:03)
[2018-07-25] MEDS: TRAVOPROST 0.004% OPHTH DROPS 2.5 ML EACHEYE SCH (20:04)
[2018-07-25] MEDS: POTASSIUM CHLOR 10 MEQ/100 ML 10 MEQ/100 ML BAG IV SCH ×3 (21:14→23:09)
[2018-07-26] MEDS: SODIUM CHLORIDE FLUSH 0.9% 10 ML SYRINGE IVP SCH ×3 (00:04→17:21)
[2018-07-26] MEDS: POTASSIUM CHLOR 10 MEQ/100 ML 10 MEQ/100 ML BAG IV SCH (00:10)
[2018-07-26] MEDS: PIPERACILLIN/TAZOBACTAM 3.375 GM in SODIUM CHLORIDE 0.9% MINIBAG 100 ML IV SCH ×4 (03:59→21:49)
[2018-07-26 04:41] LABS: BASOPHILS % (AUTO) 0.8 %; EOSINOPHILS # (AUTO) 0.1 10^3/uL (0.0-0.7); EOSINOPHILS % (AUTO) 2.3 %; HGB - HEMOGLOBIN 8.4 g/dL (12.0-16.0); LYMPHOCYTES # (AUTO) 1.1 10^3/uL (1.5-3.5); LYMPHOCYTES % (AUTO) 18.6 %; MEAN CORPUSCULAR HEMOGLOBIN 29.8 pg (27.0-31.0); MEAN CORPUSCULAR HGB CONC 33.3 g/dL (32.0-36.0); MEAN CORPUSCULAR VOLUME 89.6 fL (81.0-99.0); MEAN PLATELET VOLUME 8.6 fL (7.9-10.8); MONOCYTES # (AUTO) 0.6 10^3/uL (0.0-1.0); MONOCYTES % (AUTO) 10.1 %; NEUTROPHILS # (AUTO) 4.1 10^3/uL (1.5-6.6); NEUTROPHILS % (AUTO) 68.2 %; PLT - PLATELET COUNT 148 10^3/uL (130-450); RED BLOOD COUNT 2.83 10^6/uL (4.20-5.40); RED CELL DISTRIBUTION WIDTH 15.9 % (12.0-15.0)
[2018-07-26 05:08] LABS: % IRON SATURATION 19 % (20-50); ALBUMIN 2.4 g/dL (3.2-5.5); ALBUMIN/GLOBULIN RATIO 0.9 (1.0-2.2); ALKALINE PHOSPHATASE 257 IU/L (42-121); ALT ALANINE AMINOTRANSFERASE 23 IU/L (10-60); AST ASPARTATE AMINOTRANSFERASE 79 IU/L (10-42); BILIRUBIN,TOTAL 2.3 mg/dL (0.2-1.0); BUN - BLOOD UREA NITROGEN < 5 mg/dL (6-20); CALCIUM 7.5 mg/dL (8.5-10.3); CARBON DIOXIDE - CO2 25 mmol/L (21-32); CHLORIDE 106 mmol/L (101-111); CREATININE 0.4 mg/dL (0.4-1.0); GFR - MDRD 156 (>89); GLUCOSE 98 mg/dL (70-100); IRON 53 ug/dL (28-170); MAGNESIUM 1.8 mg/dL (1.7-2.8); SODIUM 141 mmol/L (135-145); TOTAL IRON BINDING CAPACITY 273 ug/dL (250-450); TOTAL PROTEIN 5.1 g/dL (6.7-8.2); TRANSFERRIN 195 mg/dL (192-382)
[2018-07-26 05:58] LABS: FOLATE > 49.60 ng/mL (5.90 - >24.8)
[2018-07-26] MEDS: LORazepam 2 MG/ML VIAL IVP PRN ×2 (05:59→21:48)
[2018-07-26] MEDS: NS W/20 MEQ KCL 1,000 ML IV SCH ×2 (09:15→17:20)
[2018-07-26] MEDS: HYDROcod/ACETAM 5/325 MG TABLET PO PRN ×2 (09:33→21:48)
[2018-07-26] MEDS: FAMOTIDINE 20 MG TABLET PO SCH ×2 (09:33→21:48)
[2018-07-26] MEDS: POLYETHYLENE GLYCOL 3350 17 GM PACKET PO SCH (09:33)
[2018-07-26] MEDS: RIVAROXABAN 10 MG TABLET PO SCH (09:33)
--- NOTE | 2018-07-26 13:12 | ADVANCE CARE PLANNING NOTE ---
Advance Care Planning - Date/Time Date: 07/26/18 Time: 13:09 - Purpose of encounter Text: In the face of a patient who has long-term alcohol abuse and severe deterioration in functional status in the last 3-4 monthsEstablish goals of care - Parties in attendance Parties in attendance: 2 daughters and her Plus hospitalist - Decisional capacity Decisional capacity of: Patient is slightly impaired. She has some mild withdrawal symptoms of confusion, confabulation but is alert, oriented, and very definitive about her opinions. - Subjective/Patient's story Subjective/Patient's story: She was born and raised in [facility]. 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 The unions got locked out of [place] and he had to come find work. So with her for babies in [facility], she came to [facility] many many years ago. She ended up her because he wanted to have more babies, and she did not. They were already stretched very thin with regards to finances and she just could not understand why he would want to keep on having kids when they did not have the money to do so. She met and her second around 1983. She has been with him ever since. [place] She met him in [place], at a car race. But they have have houses in [facility], and [place] In the last 10 years [place] been [place]. They have combined children from previous marriages that take turns living in the [facility]. She has been a long-term alcoholic. 1 of her daughter states that as far back as she can remember, her mom drank. Mom has refused to acknowledge that and has never gone to Alcoholics Anonymous. The daughters have, however, gone to the meetings to see how they can handle this. They have had interventions in the past but the patient has been firm in her denial that she does not have a problem. She can get very, very angry. The anger is frightening enough that the family backs off in their confrontation. Her has been passive in this. He does not like to see her angry. As such he still buys her alcohol when she needs it. He has never gone to AA meetings to learn to deal with this. Over the years she was in [employer]. 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 When she retired she loves skiing, gardening, and really really loves her garage sales, cooking, and shopping at grocery stores. She absolutely loves going to grocery stores. When her knee started bothering her, she ended up giving skiing. That was about 10 years ago. A year after that she ended up having knee replacements which brought her some increased mobility but she was never able to return to skiing. Then in 2013 she fell and had a compression fracture of her spine. Months later she was so immobile it was frightening. She ended up giving her cooking. She still loves to watch the cooking shows. [place] [employer] on the [employer] is one of her favorite things to watch. She loves drinking her martinis and watching the food channel. She probably drinks about 1 martini an hour. But she has not been able to cook, because she cannot stand. Pain in her back was significantly relieved by kyphoplasty, but again, never able to return to being able to have continuous standing position at the kitchen counters. Then in 2014, she was carrying some groceries up the stairs in her house. And she fell. She broke her femur, had a horribly long recovery, and was able to walk again. But even then she needed a lot of help with a walker, and her took over most of the household needs at that point in time. She does not do any cooking, cleaning, and he does everything. She was able to at least feed herself, dress herself. Again, her vion was the food channel and watching TV. Never able to garden again, never able to go to her garage sales and estate sales independently. For over a year, she could not even get out of the car. They would drive to a garage sale, he would bring things to her. Then 3 months ago she was unable to get up and ambulate on her own even to the car. Her legs are really weak. Especially her right leg. She does not trust it. He was able to wheel her to a bath room. He could get her to the toilet and she could stand for 30 seconds to then transfer. Then stand and transfer again back to her chair. If she needed to leave the house, they sometimes use firemen to lift her. Or they hired a aid to get her into a car for transfer. Over a month ago she has had a tremendous decrease in appetite. He brings her food and she just does not have a taste for it. She herself has been making statements that "I think I may be dying". But she stoutly maintains that she has an excellent quality of life. As long as she can watch her food channel, drink her martini, she is very content. He has been trying to get her to see a doctor or come to the hospital for over a month now. She has lost a tremendous amount of weight. She has been bedbound with only his help to sit her up and then pick her up and transfer her. He is getting overwhelmed. He has lost weight, and physically he has of his own health issues. The situation is getting tenuous and that he may not be able to physically take care of her much longer. She finally deteriorated to the point that she was confused, lethargic. Short of breath. Belly was distended and bloated. He was able to call an ambulance and she was brought to the hospital. - Objective/Medical story Objective/Medical Story: A 77-year-old white female with a history of chronic atrial fibrillation, pulmonary embolism 1-2 months ago, history of remote breast cancer, history of alcohol abuse. She was supposed to be on Xarelto when she got the pulmonary embolism. It seems like she has not been taking it. She presented to the emergency room with abdominal discomfort, bloating, and brief chest pain. She has had 1 month of abdominal bloating and swelling, leg edema for several weeks, intermittent hemorrhoidal bleeding, and occasional incontinence of urine and stool. She is most likely noncompliant with her medications. That is her . The patient's story is that she woke up, had poor vision, wanted to be outside for "fresh air". And she was brought in for poor vision. In our evaluation we have found the patient to have of abdominal bloating from ascites and most likely alcoholic liver disease. She had an initial lactic acid of 3.9 from dehydration and malnutrition, as well as a UTI. She was treated as systemic inflammatory response syndrome with UTI as the cause of infection. She is received IV fluids, IV antibiotics, and unfortunately has had to be maintained on p.o. beer to treat some of her tremulousness and most likely alcohol withdrawal. She is severely malnourished, cachectic with decreased muscle mass. She has had less than 50% of recommended intake for more than 2 weeks now. The thinks that she has not eaten anything substantial, nothing more than ice, for over a month. He makes food, but she does not want to eat it. She is profoundly weak with generalized weakness. She has been refusing physical therapy. But her family has done an intervention today, and stated that she must do physical therapy in order for her to return home. They want her to get rehab before she goes home. she is amenable to that. - Goals of Care Goals of care determinations: There are 2 levels of conversation going on here. For the patient, her goals of care are: 1. Stay at home if at all possible. 2. Continue to write her cookbook 3. She wants to return to driving 4. She wants to continue drinking. She does not want anyone telling her what to do. And she is starting to get angry at her family and her because they shared with me that she drinks too much. 5. She defines her quality of life is quite good. She feels like she still wants to make her own decisions, continue to drink, watch her TV. 6. She is not happy at the idea that her may need to hire people to help take care of her. She is insisting that he is perfectly capable of taking care of her right now; they do not need anyone in the home. 7. She does not want to be resuscitated in the event of cardiopulmonary arrest and wants to be DO NOT RESUSCITATE 8. She is tearful, and feels abandoned, and wants her to stay in the hospital with her The second level of conversation is her and her 2 daughters: 1. They agree with DO NOT RESUSCITATE 2. They want her to live. And want her to stop drinking But acknowledge that she will not stop 3. They all agree that her is overwhelmed, cannot physically take care of her, and want help in the home 4. Before she can get help in the home, she needs to have some strengthening exercises to allow her to remain relatively stable with regards to helping him so that this will allow her to be taken care of by him - Plan Plan: 1. Physical therapy to come back and reassess the patient with the patient's cooperation and the family at the bedside 2. Have social service sit down with the and give him a list of care providers for in the home. To start the process of private hire when she returns home 3. He will need to decide if he will continue to buy her alcohol or not 4. Change the patient to DO NOT RESUSCITATE status 5. intermediate facility placement for rehab if physical therapy feels she is qualified. They have identified [facility] in [place] 6. If she is not identified as qualifying for physical therapy to return home with in-home private hire immediately 7. Palliative care with transition to hospice has been discussed. If she returns to home, that is a strong consideration for the and family. Patient is reluctant to do this not because she philosophically opposes this process, but because she hates the idea of someone being in her house. - Code Status Code Status: Do Not Attempt Resuscitation - Time Spent on Advance Care Planning Time spent on advance care plannin minutes
[2018-07-26] MEDS: METOPROLOL SUCCINATE 50 MG TABLET PO SCH (13:17)
[2018-07-26] MEDS: SODIUM CHLORIDE FLUSH 0.9% 10 ML SYRINGE IVP PRN ×2 (13:18→21:49)
[2018-07-26] MEDS: BEER 480 ML CAN PO SCH ×2 (14:32→17:26)
--- NOTE | 2018-07-26 14:40 | PROVIDER PROGRESS NOTE ---
Subjective - Prog Note Date Prog Note Date: 07/26/18 Prog Note Time: 15:13 - Subjective Pt reports feeling: Improved Subjective: Today her conversation is lucid. There are moments when she has confabulation and has an alternate reality than we do. For instance she insists that she just bought a tricycle/adult bicycle and is perfectly capable of using it. She just is opted not to use it. Whereas her clearly delineates a downward spiral of deterioration over the last month where she can even get out of bed. She wants to know why her abdomen is bloated and distended. She denies chest pain, palpitations, shortness of breath. She still has anorexia no appetite for any food. Current Medications - Current Medications Current Medications: Active Medications Acetaminophen (Tylenol) 650 mg PO Q4HR PRN PRN Reason: Pain or Fever > 38C (100.4F) Hydrocodone Bitart/Acetaminophen ([place] 5/325) 1 tab PO Q12H PRN PRN Reason: PAIN Last Admin: 07/26/18 09:33 Dose: 1 tab Beer (Beer) 480 ml PO QDLUNCH [facility] Last Admin: 07/26/18 14:32 Dose: Not Given Beer (Beer) 480 ml PO QDDINNER [facility] Last Admin: 07/25/18 17:05 Dose: 480 ml Famotidine (Pepcid) 20 mg PO BID [facility] Last Admin: 07/26/18 09:33 Dose: 20 mg Piperacillin Sod/Tazobactam (Sod 3.375 gm/ Sodium Chloride) 100 mls @ 200 mls/hr IV Q6H [facility] Last Admin: 07/26/18 09:34 Dose: 200 mls/hr Multivitamins 10 ml/ Folic Acid 1 mg/ Thiamine HCl 100 mg / Magnesium Sulfate 2 gm/Sodium Chloride 1,015.2 mls @ 100 mls/hr IV DAILY@1600 [facility] Last Infusion: 07/26/18 03:20 Dose: Infused Potassium Chloride/Sodium Chloride (Normal Saline 0.9% W/20 Meq Kcl) 1,000 mls @ 125 mls/hr IV .Q8H [facility] Last Admin: 07/26/18 09:15 Dose: 125 mls/hr Lorazepam (Ativan Inj (Vial)) 2 mg IVP Q30M PRN; Protocol PRN Reason: CIWA >8 Last Admin: 07/26/18 05:59 Dose: 2 mg Metoprolol Succinate (Toprol Xl) 50 mg PO 1200 [facility] Last Admin: 07/26/18 13:17 Dose: 50 mg Polyethylene Glycol (Miralax) 17 gm PO DAILY [facility] Last Admin: 07/26/18 09:33 Dose: Not Given Prochlorperazine Edisylate (Compazine Inj) 10 mg IVP Q6HR PRN PRN Reason: Nausea / Vomiting Rivaroxaban (Xarelto) 20 mg PO DAILYWM [facility] Last Admin: 07/26/18 09:33 Dose: 20 mg Sodium Chloride (Normal Saline Flush 0.9%) 10 ml IVP PRN PRN PRN Reason: NEEDED PER PROVIDER ORDERS Last Admin: 07/26/18 13:18 Dose: 10 ml Sodium Chloride (Normal Saline Flush 0.9%) 10 ml IVP 0100,0900,1700 [facility] Last Admin: 07/26/18 09:33 Dose: Not Given Travoprost (Travatan Z) 1 drops EACHEYE QPM [facility] Last Admin: 07/25/18 20:04 Dose: 1 drops Metoprolol Succinate 50 mg PO DAILY 07/24/18 Rivaroxaban [Xarelto] 20 mg PO DAILY 07/24/18 Objective - Vital Signs/Intake & Output Reviewed Vital Signs: Yes Vital Signs: Vital Signs x48h Temp Pulse Resp BP Pulse Ox 07/26/18 13:12 36.7 C 103 H 18 126/71 97 07/26/18 07:28 36.3 C L 96 20 125/78 97 Intake & Output: Intake & Output 07/23/18 07/24/18 07/25/18 07/26/18 23:59 23:59 23:59 23:59 Intake Total 2093.468 1279.283 2173.117 Output Total 450 250 500 Balance 4778.136 9065.283 1673.117 - Objective General Appearance: positive: Other (Very cachectic, malnourished elderly female with alertness, but shakiness. At one point she burst into tears and says "you are all picking on me". , 2 daughters at the bedside.) Eyes Bilateral: positive: PERRL, EOMI ENT: positive: Dry mucous membranes, Other (Poor dentition with gooey matter on her teeth) Neck: positive: No JVD. negative: Stiff neck, Carotid bruit Respiratory: positive: Chest non-tender, No respiratory distress, Other (Rib cage visible through decreased muscle mass on her chest wall.). negative: Wheezes, Rales, Rhonchi Cardiovascular: positive: Regular rate & rhythm, Tachycardia (occasionally), Systolic murmur. negative: Gallop/S4, Friction rub Abdomen: positive: Nml bowel sounds, Tenderness (vague, gneralized), Other (mildly distended w fluid wave) Rectal: positive: Other (FOBT (+)) Skin: positive: Warm, Dry, Other (Multiple, multiple purpura on dorsum of hands, forearms. Tops of her legs. She insists that she is perfectly normal when she came in. And that we are torturing her by making her get up and grabbing onto her hands and twisting them.) Extremities: positive: Full ROM, Pedal edema Neurologic/Psychiatric: positive: Oriented x3, CN's nml (2-12), Weakness. negative: Motor nml (tremulous, shakey but non focal loss of strength), Mood/aff ect nml, Slurred/abnml speech - Lab Results Fish Bones: 07/26/18 04:25 07/26/18 04:25 Other Labs: Lab Results x24hrs 07/26/18 07/26/18 07/26/18 Range/Units 04:25 04:25 04:25 WBC 6.0 (4.8-10.8) x10^3/uL RBC 2.83 L (4.20-5.40) 10^6/uL Hgb 8.4 L (12.0-16.0) g/dL Hct 25.3 L (37.0-47.0) % MCV 89.6 (81.0-99.0) fL MCH 29.8 (27.0-31.0) pg MCHC 33.3 (32.0-36.0) g/dL RDW 15.9 H (12.0-15.0) % Plt Count 148 (130-450) 10^3/uL MPV 8.6 (7.9-10.8) fL Neut # (Auto) 4.1 (1.5-6.6) 10^3/uL Lymph # (Auto) 1.1 L (1.5-3.5) 10^3/uL [place] # (Auto) 0.6 (0.0-1.0) 10^3/uL Eos # (Auto) 0.1 (0.0-0.7) 10^3/uL Baso # (Auto) 0.0 (0.0-0.1) 10^3/uL Absolute Nucleated RBC 0.00 x10^3/uL Nucleated RBC % 0.0 /100WBC Sodium 141 (135-145) mmol/L Potassium 3.5 (3.5-5.0) mmol/L Chloride 106 (101-111) mmol/L Carbon Dioxide 25 (21-32) mmol/L Anion Gap 10.0 (6-13) BUN < 5 L (6-20) mg/dL Creatinine 0.4 (0.4-1.0) mg/dL Estimated GFR (MDRD) 156 (>89) Glucose 98 (70-100) mg/dL Calcium 7.5 L (8.5-10.3) mg/dL Magnesium 1.8 (1.7-2.8) mg/dL Iron 53 (28-170) ug/dL TIBC 273 (250-450) ug/dL % Saturation 19 L (20-50) % Transferrin 195 (192-382) mg/dL Total Bilirubin 2.3 H (0.2-1.0) mg/dL AST 79 H (10-42) IU/L ALT 23 (10-60) IU/L Alkaline Phosphatase 257 H (42-121) IU/L Total Protein 5.1 L (6.7-8.2) g/dL Albumin 2.4 L (3.2-5.5) g/dL Globulin 2.7 (2.1-4.2) g/dL Albumin/Globulin Ratio 0.9 L (1.0-2.2) Vitamin B12 880 (180-914) pg/mL Folate > 49.60 (5.90 - >24.8) ng/mL 07/25/18 07/25/18 Range/Units 16:47 16:47 WBC 6.7 (4.8-10.8) x10^3/uL RBC 2.99 L (4.20-5.40) 10^6/uL Hgb 8.6 L (12.0-16.0) g/dL Hct 27.1 L (37.0-47.0) % MCV 90.8 (81.0-99.0) fL MCH 28.9 (27.0-31.0) pg MCHC 31.8 L (32.0-36.0) g/dL RDW 16.0 H (12.0-15.0) % Plt Count 153 (130-450) 10^3/uL MPV 8.2 (7.9-10.8) fL Neut # (Auto) 5.1 (1.5-6.6) 10^3/uL Lymph # (Auto) 1.0 L (1.5-3.5) 10^3/uL [place] # (Auto) 0.5 (0.0-1.0) 10^3/uL Eos # (Auto) 0.0 (0.0-0.7) 10^3/uL Baso # (Auto) 0.0 (0.0-0.1) 10^3/uL Absolute Nucleated RBC 0.00 x10^3/uL Nucleated RBC % 0.1 /100WBC Sodium 137 (135-145) mmol/L Potassium 2.9 L (3.5-5.0) mmol/L Chloride 102 (101-111) mmol/L Carbon Dioxide 22 (21-32) mmol/L Anion Gap 13.0 (6-13) BUN 5 L (6-20) mg/dL Creatinine 0.4 (0.4-1.0) mg/dL Estimated GFR (MDRD) 156 (>89) Glucose 110 H (70-100) mg/dL Calcium 7.2 L (8.5-10.3) mg/dL Magnesium 1.5 L (1.7-2.8) mg/dL Iron (28-170) ug/dL TIBC (250-450) ug/dL % Saturation (20-50) % Transferrin (192-382) mg/dL Total Bilirubin 2.0 H (0.2-1.0) mg/dL AST 87 H (10-42) IU/L ALT 23 (10-60) IU/L Alkaline Phosphatase 288 H (42-121) IU/L Total Protein 5.4 L (6.7-8.2) g/dL Albumin 2.4 L (3.2-5.5) g/dL Globulin 3.0 (2.1-4.2) g/dL Albumin/Globulin Ratio 0.8 L (1.0-2.2) Vitamin B12 (180-914) pg/mL Folate (5.90 - >24.8) ng/mL ABX Reporting Has patient been on IV antibiotics over the past 48 hours?: Yes Assessment/Plan - Problem List (1) UTI (urinary tract infection) Impression: Qualifiers: Urinary tract infection type: site unspecified Hematuria presence: without hematuria Qualified Code(s): N39.0 - Urinary tract infection, site not specified Assessment/Plan: E coli UTI Continue empiric iv Zosyn Day #2, since she has Aminoglycoside and Cephalosporin allergies. Both sets of blood cultures are negative at 2 days. She is also growing out Proteus as well as E. coli. (2) Acute delirium Assessment/Plan: Less confused today. She was more confused yesterday than on the night of admission. Etiology felt to be from alcohol withdrawal or from Ativan plus alcohol intake here. The spoke to hospitalist yesterday, in confidence, so that his didn't know he told on her, that she drinks martinis all day, from morning til night. 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 Continue CIWA scale and prn Ativan. beer from tid to bid. (3) Ascites Qualifiers: Ascites type: due to alcoholic cirrhosis Qualified Code(s): K70.31 - Alcoholic cirrhosis of liver with ascites Assessment/Plan: Will monitor LFTs to determine if she has alcoholic hepatitis or cirrhosis with ascites. iv hydration is slow, to avoid ascites accumulation. Her abdomen is not tense or tender, to consider SBP, or to consider paracentesis. Monitor daily weights. (4) EtOH dependence Assessment/Plan: Heavy alcohol use was described by the (he told the RN that the "has a drink nearly every hour at home"). Two years ago, the inpatient records already stated she had 6 martinis per day intake. She was tremulous as she was being admitted. A CIWA protocol has been started. Replace low K and Mg. Daily banana bag ordered. Now switch to po vitamins since awake and appropriate Monitor BMP. Advanced care planning conversation under separate dictation for today. (5) Atrial fibrillation Qualifiers: Atrial fibrillation type: chronic Qualified Code(s): I48.2 - Chronic atrial fibrillation Assessment/Plan: HR is now controlled on her home dose of B-nahed. She may have been in RVR from dehydration, SIRS or from Metoprolol non- compliance. An Echo was ordered, she refused it so Dr. Joseph cancelled ECHO (6) Hx pulmonary embolism Assessment/Plan: Xarelto dose was restarted, after she requested it be not given (7) Anemia Assessment/Plan: Partly from rehydration, but iron and B12 nml. Laboratory Tests 07/24/18 07/26/18 07/26/18 08:05 04:25 04:25 Hgb 10.0 L 8.4 L Iron 53 TIBC 273 % Saturation 19 L Transferrin 195 Vitamin B12 Folate 07/26/18 04:25 Hgb Iron TIBC % Saturation Transferrin Vitamin B12 880 Folate > 49.60 (8) Severe protein calorie malnutrition Vitamin she was 63 kg in November 2014, and 45 kg on admission. With fluid resuscitation and antibiotics she has ballooned up to 62 kg of water weight. She has had significant muscle wasting, loss of subcutaneous fat as seen on exam. She has had a nutrition intake of less than 50% of recommended intake for at least 4 weeks. She is bedridden and her functional capacity has sharply deteriorated in the last month if not the last 3 months. (9) SIRS resolved.
[2018-07-26] MEDS: FOLIC ACID 1 MG TABLET PO SCH (17:20)
[2018-07-26] MEDS: THIAMINE 100 MG TABLET PO SCH (17:20)
[2018-07-26] MEDS: MULTIVITAMIN W/MINERALS TABLET PO SCH (17:21)
[2018-07-26] MEDS: TRAVOPROST 0.004% OPHTH DROPS 2.5 ML EACHEYE SCH (22:05)
[2018-07-27] MEDS: SODIUM CHLORIDE FLUSH 0.9% 10 ML SYRINGE IVP SCH ×3 (01:47→17:02)
[2018-07-27] MEDS: NS W/20 MEQ KCL 1,000 ML IV SCH ×2 (03:56→04:02)
[2018-07-27] MEDS: LORazepam 2 MG/ML VIAL IVP PRN (03:58)
[2018-07-27] MEDS: PIPERACILLIN/TAZOBACTAM 3.375 GM in SODIUM CHLORIDE 0.9% MINIBAG 100 ML IV SCH ×2 (04:49→11:08)
[2018-07-27 05:19] LABS: BASOPHILS % (AUTO) 0.7 %; EOSINOPHILS # (AUTO) 0.2 10^3/uL (0.0-0.7); HGB - HEMOGLOBIN 7.9 g/dL (12.0-16.0); LYMPHOCYTES % (AUTO) 15.8 %; MEAN CORPUSCULAR HEMOGLOBIN 29.3 pg (27.0-31.0); MEAN CORPUSCULAR HGB CONC 32.1 g/dL (32.0-36.0); MEAN PLATELET VOLUME 8.8 fL (7.9-10.8); MONOCYTES # (AUTO) 0.6 10^3/uL (0.0-1.0); MONOCYTES % (AUTO) 10.5 %; NEUTROPHILS # (AUTO) 4.3 10^3/uL (1.5-6.6); PLT - PLATELET COUNT 134 10^3/uL (130-450); RED BLOOD COUNT 2.69 10^6/uL (4.20-5.40); RED CELL DISTRIBUTION WIDTH 16.3 % (12.0-15.0); WHITE BLOOD COUNT 6.2 x10^3/uL (4.8-10.8)
[2018-07-27 05:28] LABS: ALBUMIN 2.2 g/dL (3.2-5.5); ALBUMIN/GLOBULIN RATIO 0.8 (1.0-2.2); BILIRUBIN,TOTAL 1.9 mg/dL (0.2-1.0); CALCIUM 7.5 mg/dL (8.5-10.3); CREATININE 0.6 mg/dL (0.4-1.0); MAGNESIUM 1.6 mg/dL (1.7-2.8)
[2018-07-27] MEDS: POLYETHYLENE GLYCOL 3350 17 GM PACKET PO SCH (09:14)
[2018-07-27] MEDS: RIVAROXABAN 10 MG TABLET PO SCH (09:14)
[2018-07-27] MEDS: MULTIVITAMIN W/MINERALS TABLET PO SCH (09:14)
[2018-07-27] MEDS: HYDROcod/ACETAM 5/325 MG TABLET PO PRN (09:14)
[2018-07-27] MEDS: THIAMINE 100 MG TABLET PO SCH (09:14)
[2018-07-27] MEDS: FAMOTIDINE 20 MG TABLET PO SCH ×2 (09:14→21:22)
[2018-07-27] MEDS: FOLIC ACID 1 MG TABLET PO SCH (09:14)
[2018-07-27] MEDS: BEER 480 ML CAN PO SCH ×2 (12:07→16:30)
[2018-07-27] MEDS: METOPROLOL SUCCINATE 50 MG TABLET PO SCH (12:07)
--- NOTE | 2018-07-27 12:14 | PROVIDER PROGRESS NOTE ---
Subjective - Prog Note Date Prog Note Date: 07/27/18 Prog Note Time: 12:22 - Subjective Pt reports feeling: Improved Subjective: I think because of confabulation this lady has an interesting viewpoint. She is convinced that she is ambulatory, independent even though all exam findings and her need for help points to the contrary. She is consuming anywhere from 25-50% of her meals between the 15th and now. She is a total assist with eating. She denies pain, abdominal discomfort, shortness of breath. Current Medications - Current Medications Current Medications: Active Medications Acetaminophen (Tylenol) 650 mg PO Q4HR PRN PRN Reason: Pain or Fever > 38C (100.4F) Hydrocodone Bitart/Acetaminophen ([place] 5/325) 1 tab PO Q12H PRN PRN Reason: PAIN Last Admin: 07/27/18 09:14 Dose: 1 tab Beer (Beer) 480 ml PO QDLUNCH [facility] Last Admin: 07/27/18 12:07 Dose: 480 ml Beer (Beer) 480 ml PO QDDINNER [facility] Last Admin: 07/26/18 17:26 Dose: 480 ml Ciprofloxacin (Cipro) 500 mg PO BID SHY Famotidine (Pepcid) 20 mg PO BID [facility] Last Admin: 07/27/18 09:14 Dose: 20 mg Folic Acid () 1 mg PO DAILY [facility] Last Admin: 07/27/18 09:14 Dose: 1 mg Lorazepam (Ativan Inj (Vial)) 2 mg IVP Q30M PRN; Protocol PRN Reason: CIWA >8 Last Admin: 07/27/18 03:58 Dose: 2 mg Metoprolol Succinate (Toprol Xl) 50 mg PO 1200 [facility] Last Admin: 07/27/18 12:07 Dose: 50 mg Multivitamins/Minerals (Theragran M) 1 tab PO DAILY [facility] Last Admin: 07/27/18 09:14 Dose: 1 tab Polyethylene Glycol (Miralax) 17 gm PO DAILY [facility] Last Admin: 07/27/18 09:14 Dose: Not Given Prochlorperazine Edisylate (Compazine Inj) 10 mg IVP Q6HR PRN PRN Reason: Nausea / Vomiting Last Admin: 07/27/18 11:38 Dose: 10 mg Rivaroxaban (Xarelto) 20 mg PO DAILYWM [facility] Last Admin: 07/27/18 09:14 Dose: 20 mg Sodium Chloride (Normal Saline Flush 0.9%) 10 ml IVP PRN PRN PRN Reason: NEEDED PER PROVIDER ORDERS Last Admin: 07/26/18 21:49 Dose: 10 ml Sodium Chloride (Normal Saline Flush 0.9%) 10 ml IVP 0100,0900,1700 [facility] Last Admin: 07/27/18 09:14 Dose: Not Given Thiamine HCl (Vitamin B-1) 100 mg PO DAILY [facility] Last Admin: 07/27/18 09:14 Dose: 100 mg Travoprost (Travatan Z) 1 drops EACHEYE QPM [facility] Last Admin: 07/26/18 22:05 Dose: 1 drops Metoprolol Succinate 50 mg PO DAILY 07/24/18 Rivaroxaban [Xarelto] 20 mg PO DAILY 07/24/18 Objective - Vital Signs/Intake & Output Reviewed Vital Signs: Yes Vital Signs: Vital Signs x48h Temp Pulse Resp BP Pulse Ox 07/27/18 07:51 36.3 C L 115 H 20 122/81 H 100 07/27/18 05:32 36.5 C 97 18 116/77 95 Intake & Output: Intake & Output 07/24/18 07/25/18 07/26/18 07/27/18 23:59 23:59 23:59 23:59 Intake Total 9431.500 9634.283 3863.117 1220 Output Total 450 250 500 Balance 3155.974 5468.283 3363.117 1220 - Objective General Appearance: positive: No acute distress, Alert, Other (Cachectic elderly female with severe loss of muscle mass in all limbs, bilateral temporal wasting, covered in purpura from IV sticks, bruising from physical therapy, and her own pressure of skin against bed rails at times.) Eyes Bilateral: positive: PERRL, EOMI ENT: positive: Dry mucous membranes Neck: positive: No JVD. negative: Stiff neck, Carotid bruit Respiratory: positive: Chest non-tender. negative: Wheezes, Rales, Rhonchi Cardiovascular: positive: Irregularly irregular, Systolic murmur. negative: Gallop/S4, Friction rub Abdomen: positive: Non-tender, Nml bowel sounds, Hepatomegaly, Other (Mild distention. There is some evidence of a palpable fluid wave when high shake her pelvis to and fro). negative: Guarding, Rebound Skin: positive: Warm, Dry, Pallor, Other (Multiple senile purpura seen on forearms, dorsum of hands, her vasquez areas.) Extremities: positive: Full ROM, Pedal edema. negative: Nml appearance (Severe loss of muscle mass diffusely in arms and legs) Neurologic/Psychiatric: positive: Oriented x3, CN's nml (2-12), Motor nml (But severe diffuse weakness), Disoriented to time (Intermittently) - Lab Results Fish Bones: 07/27/18 05:05 07/27/18 05:05 Other Labs: Lab Results x24hrs 07/27/18 07/27/18 Range/Units 05:05 05:05 WBC 6.2 (4.8-10.8) x10^3/uL RBC 2.69 L (4.20-5.40) 10^6/uL Hgb 7.9 L (12.0-16.0) g/dL Hct 24.4 L (37.0-47.0) % MCV 91.0 (81.0-99.0) fL MCH 29.3 (27.0-31.0) pg MCHC 32.1 (32.0-36.0) g/dL RDW 16.3 H (12.0-15.0) % Plt Count 134 (130-450) 10^3/uL MPV 8.8 (7.9-10.8) fL Neut # (Auto) 4.3 (1.5-6.6) 10^3/uL Lymph # (Auto) 1.0 L (1.5-3.5) 10^3/uL Lassen # (Auto) 0.6 (0.0-1.0) 10^3/uL Eos # (Auto) 0.2 (0.0-0.7) 10^3/uL Baso # (Auto) 0.0 (0.0-0.1) 10^3/uL Absolute Nucleated RBC 0.00 x10^3/uL Nucleated RBC % 0.0 /100WBC Sodium 140 (135-145) mmol/L Potassium 4.2 (3.5-5.0) mmol/L Chloride 110 (101-111) mmol/L Carbon Dioxide 25 (21-32) mmol/L Anion Gap 5.0 L (6-13) BUN 5 L (6-20) mg/dL Creatinine 0.6 (0.4-1.0) mg/dL Estimated GFR (MDRD) 97 (>89) Glucose 103 H (70-100) mg/dL Calcium 7.5 L (8.5-10.3) mg/dL Magnesium 1.6 L (1.7-2.8) mg/dL Total Bilirubin 1.9 H (0.2-1.0) mg/dL AST 60 H (10-42) IU/L ALT 22 (10-60) IU/L Alkaline Phosphatase 228 H (42-121) IU/L Total Protein 5.0 L (6.7-8.2) g/dL Albumin 2.2 L (3.2-5.5) g/dL Globulin 2.8 (2.1-4.2) g/dL Albumin/Globulin Ratio 0.8 L (1.0-2.2) ABX Reporting Has patient been on IV antibiotics over the past 48 hours?: Yes Assessment/Plan - Problem List (1) Alcoholic cirrhosis of liver with ascites Impression: Confirmed by history, physical exam, and lab studies. She is also had imaging studies with an abdomen pelvis CT showing a heterogeneous liver with a new density that was not seen on CT pulmonary angiogram May 06. She also has ascites. Because it could be from multiple hepatic masses or other masses, hepatitis, cirrhosis or fatty infiltration, radiology did recommend another imaging study. Bilirubin started at 1.8 then climbed up to as high as 2.3 yesterday. She is 1. 9 today. AST started at 114 and is down to 60 today. ALT has remained stable. Alk phos started at 375 and is down to 228 today. MRI is preferred. We will see if this patient will cooperate with that. (2) UTI (urinary tract infection) Impression: Assessment/Plan: E coli/Klebsiella/Proteus UTI Empiric iv Zosyn Day #3, since she has Aminoglycoside and Cephalosporin allergies. Both sets of blood cultures are negative at 2 days. All 3 are sensitive to Cipro. Will stop zosyn and start cipro. (3) Acute delirium Assessment/Plan: As her admission has progressed, she has become less and less confused each day. Etiology felt to be from alcohol withdrawal or from Ativan plus alcohol intake here. The spoke to hospitalist 07/25, in confidence, so that his didn't know he told on her, that she drinks martinis all day, from morning til night. 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 Continue CIWA scale and prn Ativan. beer from tid to bid. She is very clear that she will not stop drinking when she gets home. Alcohol has been ordered while she is here to avoid full-blown withdrawal. Plan is to continue her to have alcohol in a judicious pace if she goes to [facility] facility. has been okay with this. Unfortunately her daughter did tell the nurse not to give her her drink yesterday. We will then have to reiterate the patient's desires with the family versus the family's desires for the patient. (4) EtOH dependence Assessment/Plan: Heavy alcohol use was described by the (he told the RN that the "has a drink nearly every hour at home"). Two years ago, the inpatient records already stated she had 6 martinis per day intake. She was tremulous as she was being admitted. A CIWA protocol has been started. Hypomagnesemia and hypokalemia were replaced as needed. Daily banana bag ordered. Switched to po vitamins since awake and appropriate on 07/26 Monitor BMP. Advanced care planning conversation under separate dictation on 07/26/18 (5) Atrial fibrillation Qualifiers: Atrial fibrillation type: chronic Qualified Code(s): I48.2 - Chronic atrial fibrillation Assessment/Plan: HR is now controlled on her home dose of B-nahed. She may have been in RVR from dehydration, SIRS or from Metoprolol non- compliance. An Echo was ordered, she refused it so Dr. Joseph cancelled ECHO (6) Hx pulmonary embolism Assessment/Plan: Xarelto dose was restarted, after she requested it be not given (7) Anemia Assessment/Plan: Partly from rehydration, but iron and B12 nml. Laboratory Tests 07/24/18 07/26/18 07/26/18 08:05 04:25 04:25 Hgb 10.0 L 8.4 L Iron 53 TIBC 273 % Saturation 19 L Transferrin 195 Vitamin B12 Folate 07/26/18 04:25 Hgb Iron TIBC % Saturation Transferrin Vitamin B12 880 Folate > 49.60 (8) Severe protein calorie malnutrition she was 63 kg in November 2014, and 45 kg on admission. Going up to 57 than 59 than 62 and now 63 kg. today. With fluid resuscitation and antibiotics she has ballooned up with water weight and some nutrition intake. She has had significant muscle wasting, loss of subcutaneous fat as seen on exam. She has had a nutrition intake of less than 50% of recommended intake for at least 4 weeks. She is bedridden and her functional capacity has sharply deteriorated in the last month if not the last 3 months. Nutrition services are working with her. (9) SIRS resolved.
[2018-07-27] MEDS: CIPROFLOXACIN 250 MG TABLET PO SCH ×2 (12:28→21:21)
[2018-07-27] MEDS: TRAVOPROST 0.004% OPHTH DROPS 2.5 ML EACHEYE SCH (21:22)
[2018-07-28 05:18] LABS: BASOPHILS # (AUTO) 0.1 10^3/uL (0.0-0.1); BASOPHILS % (AUTO) 1.3 %; EOSINOPHILS # (AUTO) 0.1 10^3/uL (0.0-0.7); HGB - HEMOGLOBIN 8.2 g/dL (12.0-16.0); LYMPHOCYTES # (AUTO) 0.7 10^3/uL (1.5-3.5); LYMPHOCYTES % (AUTO) 9.7 %; MEAN CORPUSCULAR HEMOGLOBIN 29.5 pg (27.0-31.0); MEAN CORPUSCULAR HGB CONC 32.6 g/dL (32.0-36.0); MEAN CORPUSCULAR VOLUME 90.6 fL (81.0-99.0); MEAN PLATELET VOLUME 8.7 fL (7.9-10.8); MONOCYTES # (AUTO) 0.8 10^3/uL (0.0-1.0); MONOCYTES % (AUTO) 11.7 %; NEUTROPHILS # (AUTO) 5.2 10^3/uL (1.5-6.6); NEUTROPHILS % (AUTO) 75.3 %; PLT - PLATELET COUNT 138 10^3/uL (130-450); RED BLOOD COUNT 2.76 10^6/uL (4.20-5.40); RED CELL DISTRIBUTION WIDTH 16.1 % (12.0-15.0); WHITE BLOOD COUNT 6.9 x10^3/uL (4.8-10.8)
[2018-07-28 05:28] LABS: ALBUMIN 2.2 g/dL (3.2-5.5); ALBUMIN/GLOBULIN RATIO 0.8 (1.0-2.2); BILIRUBIN,TOTAL 2.3 mg/dL (0.2-1.0); CALCIUM 7.9 mg/dL (8.5-10.3); CREATININE 0.4 mg/dL (0.4-1.0); MAGNESIUM 1.5 mg/dL (1.7-2.8); TOTAL PROTEIN 5.1 g/dL (6.7-8.2)
[2018-07-28] MEDS: SODIUM CHLORIDE FLUSH 0.9% 10 ML SYRINGE IVP SCH ×2 (06:38→08:26)
[2018-07-28 08:04] VITALS: BP 135/94
[2018-07-28] MEDS: FOLIC ACID 1 MG TABLET PO SCH (08:25)
[2018-07-28] MEDS: MULTIVITAMIN W/MINERALS TABLET PO SCH (08:25)
[2018-07-28] MEDS: THIAMINE 100 MG TABLET PO SCH (08:25)
[2018-07-28] MEDS: FAMOTIDINE 20 MG TABLET PO SCH (08:25)
[2018-07-28] MEDS: HYDROcod/ACETAM 5/325 MG TABLET PO PRN (08:25)
[2018-07-28] MEDS: RIVAROXABAN 10 MG TABLET PO SCH (08:26)
[2018-07-28] MEDS: POLYETHYLENE GLYCOL 3350 17 GM PACKET PO SCH (08:26)
[2018-07-28] MEDS: CIPROFLOXACIN 250 MG TABLET PO SCH (08:26)
--- NOTE | 2018-07-28 09:21 | Discharge Plan ---
Discharge Plan Disposition: Home, Self Care Condition: Good Prescriptions: Ciprofloxacin [Cipro] 500 mg PO BID #10 tablet Diet: Regular Activity Restrictions: Activity as Tolerated Shower Restrictions: Yes (must have aid to help) Driving Restrictions: Yes (no driving) Assistance Devices: Wheelchair, Walker Weight Bearing: Full Weight Additional Instructions or Follow Up instructions: You were placed into the hospital because of generalized weakness, not feeling well, blurred vision. We found you to have severe malnutrition as well as alcoholic liver disease with fluid in your stomach called ascites. You have borderline complete liver failure because of your alcohol use. We also found you to have a urinary tract infection. You have chronic atrial fibrillation, but you are not taking a blood thinner at this time for that. You were taking a blood thinner for a pulmonary embolism that you had a few months ago. In looking at the risk of continuing to drink and taking a blood thinner, it will have to be your judgment about whether you wanted to continue the blood thinner or not. It is dangerous to mix blood thinners with alcohol. You could have sudden bleeding that we cannot stop. We strongly advise you not to drink at all. It is slowly killing you and we do not anticipate you having a normal life span at the rate you are going. You need to focus on good nutrition, physical therapy, and improving her overall health. At this time you have told us that you will continue to drink, you do not want physical therapy, and do not want to be placed in a [facility] facility for physical therapy rehabilitation. Your will need help taking care of you at home. We have given him a l ist of in-home support providers for him to hire. Because you were incontinent of urine and sometimes incontinent of stool, he really needs help having you bathed and changed. Please see your primary care provider in the next 1-2 weeks. They will receive a copy of the discharge summary from this facility. No Smoking: If you smoke, Please STOP! Call for help. Follow-up with: Shirley Saleem MD [Primary Care Provider] -
--- NOTE | 2018-07-28 19:58 | DISCHARGE SUMMARY ---
Physician: Juliette Porter MD DATE OF ADMISSION: 07/24/2018 DATE OF DISCHARGE: 07/28/2018 DISCHARGE DIAGNOSES 1. Urinary tract infection with Escherichia coli, Proteus, Klebsiella pneumoniae. 2. Acute delirium. 3. Alcohol dependence. 4. Chronic atrial fibrillation. 5. History of pulmonary embolus. 6. Anemia. 7. Severe protein calorie malnutrition. 8. Alcoholic cirrhosis of the liver with ascites. DISCHARGE MEDICATIONS 1. Metoprolol succinate 50 mg p.o. daily. 2. Xarelto 20 mg p.o. daily. 3. Cipro 500 mg p.o. b.i.d. for 5 more days. 4. Folic acid 1 mg daily. 5. Multivitamin 1 tablet daily. 6. Thiamine 100 mg daily. 7. Travoprost 0.004% ophthalmic drop 1 drop each eye daily. PRINCIPAL PROCEDURES: 1. Abdomen and pelvis CT with heterogeneous density of the liver that appears new or more conspicuou s, compared to previous CT pulmonary angiograms 05/06/2018. 2. Chest x-ray with small left pleural effusion, left basilar atelectasis. 3. Blood cultures without growth for 2 days. 4. Urine culture positive for E. coli, Proteus, Klebsiella. 3. Ethyl alcohol on admission 37.3. HOSPITAL COURSE: This patient is a 77-year-old, white female who lives with her . He describ es a gradually failing individual, over the last several months, with increasing alcohol intake. He had us leave the room, so he could tell us that she is drinking probably 1 Martini an hour while awak e. The drinking is nonstop. She has been refusing to eat, and she just has no appetite. She has be en gradually getting more and more immobile, to the point that she needs help to go in and out of her house. She loves to go to garage sales, estate sales, but in the last year, she has been sitting in the car, and her brings stuff for her to look at. In the last 2-3 months, she cannot even g et out of the house to do that. She has been describing increasing abdominal distention and bloating . She has had profound weight loss. She finally felt badly enough that she came to the emergency room. He has been trying to get her to come for over a month, and she has refused. In coming to the emergency room, she had brief chest bree n the day before admission, and that was evaluated. She was found to be in atrial fibrillation with a rapid ventricular response, elevated lactic acid level, and was admitted for SIRS and a UTI. When she was initially brought in, she was very lethargic and at times difficult to arouse. She was also very vague and an evasive historian. As time went on, she got more and more alert with hydratio n, treatment of a UTI, and given food. Physical exam showed her to be very cachectic, severe loss of subcutaneous fat and diffuse muscle mass loss. She had horrible dentition. Although she was felt t o be in atrial fibrillation, she had a more regular rate and rhythm throughout her stay with a systol ic murmur. She was very adamant that she was not going to stop drinking. Advanced care planning was discussed w ith her. Family had initially hoped that, if we could treat the urinary tract infection, get resolut ion of her delirium, stop her drinking and get her through withdrawal here, and feed her, that she co uld do physical rehabilitation in a residential facility to get her strength back up. Then, they could take her home. The patient initially said she is willing to work with PT, but spent most of h er time declining working with them and actively resisting by passively leaning back, as opposed to f orward, when they tried to work with her. Family was very honest with her. They said that they have tried various interventions with getting her to stop drinking, and at one point, she felt they were picking on her. She also claimed that her was getting ready to leave her, when he was not. Whenever the conversation gets difficult, she would change the topic, become emotional manipulative t o make them feel guilty about them not loving her enough. In the end, they reluctantly and with amaury wesley let her decide that she was going to go home and continue to drink. Her did say janis t he was going to try and see if he could not buy her alcohol anymore. On examination, she does have the liver edge, fluid wave, but no acute abdominal pain. It is felt that she should be kept on multivitamins and magnesium oxide in the outpatient setting. I did start multivitamins, but she should have magnesium oxide started. She is to complete her antibiotic course for UTI. She is not a candidate for anticoagulation with he r chronic atrial fibrillation, but she is on Xarelto for her PE. This is a difficult situation with pros and cons in someone who continues to drink and also uses Xarelto. I did point out to her that t he combination of the 2 is quite dangerous. The risk of bleeding is quite high, and in the end, she may end up stopping the Xarelto, as she did right before she came in. On the day of discharge, she was alert, adamant that she wanted to get home, and in a hurry. This is the most alert I seen her the entire admission. Temperature was 36.7. Pulse was 106. Blood pressu re 135/94. Respirations 18. Oxygen saturation 98% on room air. She is a profoundly cachectic, elde rly woman at 5 feet 5 inches and 63 kilograms. Severe loss of muscle mass, severe loss of subcutaneo us fat. Her face looked like it was a skull. Neck was supple. Lungs were with coarse upper airway sounds, but essentially clear with no increased respiratory effort. In the end, she did have a slow irregular rate and rhythm with discharge with a systolic murmur, but at times, I could hear sinus rhy thm as well. The abdomen was softly distended, a very minimal fluid wave palpable, but not tympaniti c. Extremities were gaunt and cachectic and covered with senile purpura. She requires a 2-person li ft to get her up. is going to be buying a new lift to get her into the house. She is encouraged to follow up with her primary care provider in the next 1-2 weeks. I did offer to send her home with home health, but she was adamant in saying she did not want strangers in her house . She did not want to do outpatient physical therapy. Her is going to have an uphill hernandez in hiring in-home help for him to help take care of her. TD: 07/28/2018 19:04
== END 2018-07-28 12:43 | disposition home or self-care (01) | DRG 871 ==
LOC: ED 07:54 → MS3 11:52
PROVIDERS: ADMIT Internal Medicine; ATTEND Specialist
DX: J90 Pleural effusion, not elsewhere classified (principal); R93.2 Abnormal findings on diagnostic imaging of liver and biliary tract; R79.89 Other specified abnormal findings of blood chemistry; R07.9 Chest pain, unspecified; R18.8 Other ascites; A41.51 Sepsis due to Escherichia coli [E. coli]; I48.91 Unspecified atrial fibrillation; E43 Unspecified severe protein-calorie malnutrition; K92.1 Melena; N39.0 Urinary tract infection, site not specified; F10.231 Alcohol dependence with withdrawal delirium; R21 Rash and other nonspecific skin eruption; I10 Essential (primary) hypertension; J45.909 Unspecified asthma, uncomplicated; K21.9 Gastro-esophageal reflux disease without esophagitis; Z87.01 Personal history of pneumonia (recurrent); A41.59 Other Gram-negative sepsis; Z79.01 Long term (current) use of anticoagulants; T45.516A Underdosing of anticoagulants, initial encounter; T44.7X6A Underdosing of beta-adrenoreceptor antagonists, initial encounter; I48.2 Chronic atrial fibrillation; E86.0 Dehydration; E87.6 Hypokalemia; E83.42 Hypomagnesemia; D64.9 Anemia, unspecified; K70.31 Alcoholic cirrhosis of liver with ascites; K70.40 Alcoholic hepatic failure without coma; R01.1 Cardiac murmur, unspecified; R15.9 Full incontinence of feces; R32 Unspecified urinary incontinence; K64.9 Unspecified hemorrhoids; R60.0 Localized edema; D69.2 Other nonthrombocytopenic purpura; H53.8 Other visual disturbances; Z96.653 Presence of artificial knee joint, bilateral; Y90.0 Blood alcohol level of less than 20 mg/100 ml; Z66 Do not resuscitate; Z88.1 Allergy status to other antibiotic agents; Z87.81 Personal history of (healed) traumatic fracture; Z79.899 Other long term (current) drug therapy; Z85.3 Personal history of malignant neoplasm of breast; Z86.711 Personal history of pulmonary embolism; Z74.01 Bed confinement status
CPT/HCPCS: 36415; 51701; 71046; 74176; 80053; 80320; 81001; 81003; 82140; 82272; 82607; 82746; 83540; 83605; 83690; 83735; 84466; 84484; 85025; 87040; 87077; 87086; 87181; 93005; 96361; 96374; 96376; 99284; 99285